=== PATIENT | female | born 1950 | race Caucasian/White ===

== ENCOUNTER 2019-03-23 13:26 | Inpatient (IN) ==
[2019-03-23] MEDS ORDERED: 0.9 % Sodium Chloride 500 ML IVC STA (13:43)
[2019-03-23] MEDS ORDERED: Naloxone 0.4 MG/ML INJ IVP STA (13:49)
[2019-03-23 15:05] LABS: Bilirubin,Urine Small (Negative); Blood,Urine Large (Negative); Clarity,Urine Turbid (Clear); Color,Urine Yellow (Yellow); Glucose,Urine (UA) Normal (Normal); Ketones,Urine Trace mg/dL (Negative); Leukocyte Esterase,Urine Moderate (Negative); Nitrite,Urine Negative (Negative); PH,Urine 5.5 pH Units (5.0-8.0); Protein,Urine 100 mg/dL (Neg-Trace); Urobilinogen,Urine Normal (Normal)
[2019-03-23 15:07] LABS: Bacteria,Urine Few per hpf (None-Few); Squamous Epithelial Cell,Urine Many per lpf (None-Few); WBC,Urine TNTC per hpf (0-3)
[2019-03-23 15:15] LABS: RBC,Urine Present per hpf (0-3)
[2019-03-23 15:16] LABS: Renal Epithelial Cells,Urine Present per hpf (None-Few); Transitional Epi Cells,Urine Present per hpf (None-Few)
[2019-03-23 15:22] LABS: Basophils % 0.3 %; Eosinophils # 0.1 K/mcL (0.0-0.6); Eosinophils % 0.8 %; Hematocrit 31.1 % (35.3-44.9); Hemoglobin 9.9 g/dL (11.5-15.4); Immature Granulocytes % 0.4 % (0-4); Lymphocytes # 0.8 K/mcL (0.6-4.6); Lymphocytes % 10.4 %; Mean Corpuscular HGB Conc 31.8 g/dL (31.6-35.5); Mean Corpuscular Hemoglobin 30.7 pg (28.0-33.3); Mean Corpuscular Volume 96.6 fL (83.0-100.0); Mean Platelet Volume 10.8 fL (9.4-12.4); Monocytes # 0.7 K/mcL (0.0-1.3); Monocytes % 8.4 %; Neutrophils # 6.3 K/mcL (1.6-8.9); Platelet Count 245 K/mcL (140-400); Red Blood Count 3.22 M/mcL (3.82-4.97); Red Cell Distribution Width 16.8 % (11.5-14.5); Segmented Neutrophils % 79.7 %; White Blood Count 7.9 K/mcL (4.3-11.1)
[2019-03-23] MEDS ORDERED: 0.9 % Sodium Chloride 1,000 ML IVC ONE (15:50)
[2019-03-23 16:28] LABS: Thyroid Stimulating Hormone 6.907 mcIU/mL (0.340-5.600); Troponin I < 0.03 ng/mL (< 0.04)
[2019-03-23] MEDS ORDERED: Piperacillin/Tazobactam 3.375 GM in Water for inj. (sterile) 20 ML IVP ONE (16:30)
[2019-03-23] MEDS ORDERED: Azithromycin 500 MG in 0.9 % Sodium Chloride 250 ML IVPB ONE (16:31)
[2019-03-23 16:47] LABS: Alanine Aminotransferase 4 Units/L (7-52); Albumin 2.7 g/dL (3.5-5.7); Albumin/Globulin Ratio 0.9 (1.1-2.2); Alkaline Phosphatase 67 Units/L (34-104); Aspartate Amino Transferase 14 Units/L (13-39); BUN/Creatinine Ratio 21 (6-26); Bilirubin,Indirect 0.3 mg/dL (0.0-1.0); Bilirubin,Total 0.3 mg/dL (0.3-1.0); Blood Urea Nitrogen 18 mg/dL (8-23); Calcium 9.2 mg/dL (8.6-10.3); Carbon Dioxide 23 mEq/L (23-29); Chloride 112 mEq/L (98-107); Globulin 2.9 g/dL (2.4-3.5); Glucose 90 mg/dL (70-105); Osmolality,Calculated 293 (280-300); Potassium 3.8 mEq/L (3.5-5.1); Sodium 141 mEq/L (136-145); Total Protein 5.6 g/dL (6.4-8.9); eGFR For African Americans > 60 (> 60); eGFR For Non-African Americans > 60 (> 60)
[2019-03-23] MEDS ORDERED: Naloxone 0.4 MG/ML INJ IVP PRN (18:18)
[2019-03-23] MEDS ORDERED: Dextrose Gel 15 GM/37.5 ML TUBE PO PRN ×2 (18:25)
[2019-03-23] MEDS ORDERED: D5% in Water 1,000 ML IVC PRN (18:25)
[2019-03-23 19:34] LABS: Estimated Average Glucose 134 mg/dl
[2019-03-23] MEDS: 0.9 % Sodium Chloride 1,000 ML IVC SCH (19:44)
[2019-03-23 20:51] LABS: Adenovirus Not Detected (Not Detect); Bordetella Pertussis Not Detected (Not Detect); Chlamydophila pneumoniae Not Detected (Not Detect); Coronavirus 229E Not Detected (Not Detect); Coronavirus HKU1 Not Detected (Not Detect); Coronavirus NL63 Not Detected (Not Detect); Coronavirus OC43 Not Detected (Not Detect); Human Metapneumovirus Not Detected (Not Detect); Human Rhinovirus/Enterovirus Not Detected (Not Detect); Influenza A Subtype 2009 H1 Not Detected (Not Detect); Influenza A Untypeable Not Detected (Not Detect); Influenza B Not Detected (Not Detect); Mycoplasma pneumoniae Not Detected (Not Detect); Parainfluenza Virus 1 Not Detected (Not Detect); Parainfluenza Virus 2 Not Detected (Not Detect); Parainfluenza Virus 3 Not Detected (Not Detect); Parainfluenza Virus 4 Not Detected (Not Detect); Respiratory Syncytial Virus Not Detected (Not Detect)
[2019-03-23 22:04] LABS: Triiodothyronine (T3) Free 2.5 pg/mL (2.50-3.90)
[2019-03-23] MEDS: Topiramate 25 MG TABLET PO SCH (22:56)
[2019-03-23] MEDS: Divalproex (12 HR) 500 MG TABLET PO SCH (22:56)
[2019-03-23] MEDS: Insulin LISPRO 300 UNITS/3 ML VIAL SQ SCH (22:57)
[2019-03-23] MEDS: levETIRAcetam 250 MG TABLET PO SCH (22:57)
[2019-03-24 06:02] LABS: Basophils % 0.3 %; Eosinophils # 0.1 K/mcL (0.0-0.6); Eosinophils % 1.4 %; Hematocrit 26.7 % (35.3-44.9); Immature Granulocytes % 0.5 % (0-4); Lymphocytes # 1.2 K/mcL (0.6-4.6); Lymphocytes % 18.8 %; Mean Corpuscular HGB Conc 30.7 g/dL (31.6-35.5); Mean Corpuscular Hemoglobin 30.8 pg (28.0-33.3); Mean Corpuscular Volume 100.4 fL (83.0-100.0); Mean Platelet Volume 10.9 fL (9.4-12.4); Monocytes # 0.4 K/mcL (0.0-1.3); Monocytes % 6.5 %; Neutrophils # 4.7 K/mcL (1.6-8.9); Platelet Count 202 K/mcL (140-400); Red Blood Count 2.66 M/mcL (3.82-4.97); Red Cell Distribution Width 16.7 % (11.5-14.5); Segmented Neutrophils % 72.5 %; White Blood Count 6.5 K/mcL (4.3-11.1)
[2019-03-24 06:04] LABS: Hemoglobin 8.2 g/dL (11.5-15.4)
[2019-03-24] MEDS: Divalproex (12 HR) 500 MG TABLET PO SCH (06:20)
[2019-03-24 06:38] LABS: BUN/Creatinine Ratio 22 (6-26); Blood Urea Nitrogen 13 mg/dL (8-23); Calcium 8.3 mg/dL (8.6-10.3); Carbon Dioxide 18 mEq/L (23-29); Chloride 114 mEq/L (98-107); Glucose 68 mg/dL (70-105); Magnesium 1.9 mg/dL (1.6-2.6); Osmolality,Calculated 296 (280-300); Phosphorous 2.7 mg/dL (2.7-4.5); Potassium 3.2 mEq/L (3.5-5.1); Sodium 144 mEq/L (136-145); Triiodothyronine (T3) Total 0.56 ng/mL (0.87-1.78); eGFR For African Americans > 60 (> 60); eGFR For Non-African Americans > 60 (> 60)
[2019-03-24] MEDS: Insulin LISPRO 300 UNITS/3 ML VIAL SQ SCH ×4 (09:03→21:24)
[2019-03-24] MEDS: levETIRAcetam 250 MG TABLET PO SCH (09:04)
[2019-03-24] MEDS: Aspirin Enteric Coated 325 MG Tablet PO SCH (09:04)
[2019-03-24] MEDS: Topiramate 25 MG TABLET PO SCH ×2 (09:04→20:41)
[2019-03-24] MEDS: Piperacillin/Tazobactam 3.375 GM in 0.9 % Sodium Chloride Mini Bag 100 ML IVPB SCH ×2 (09:05→20:41)
[2019-03-24] MEDS: *HR* Dextrose 50 % in Water (Syg) 50 ML SYRINGE IVP PRN ×2 (11:36→11:38)
[2019-03-24] MEDS: D5% in 0.45% NACL 1,000 ML IVC SCH (12:07)
[2019-03-24] MEDS ORDERED: Piperacillin/Tazobactam 3.375 GM in 0.9 % Sodium Chloride Mini Bag 100 ML IVPB SCH (18:00)
[2019-03-24] MEDS: Valproic Acid INJ 500 MG in 0.9 % Sodium Chloride 100 ML IVPB SCH (18:03)
[2019-03-24] MEDS ORDERED: *HR* Dextrose 50 % in Water (Vial) 50 ML VIAL IVC ONE (19:56)
[2019-03-24] MEDS ORDERED: Aminoglycoside Consult 1 EACH MC ONE (19:56)
[2019-03-25] MEDS: 0.9 % Sodium Chloride 1,000 ML IVC SCH (00:18)
[2019-03-25] MEDS: Valproic Acid INJ 500 MG in 0.9 % Sodium Chloride 100 ML IVPB SCH ×4 (00:30→23:03)
[2019-03-25] MEDS: D5% in 0.45% NACL 1,000 ML IVC SCH ×2 (02:46→12:58)
[2019-03-25] MEDS ORDERED: Piperacillin/Tazobactam 3.375 GM in 0.9 % Sodium Chloride Mini Bag 100 ML IVPB SCH (05:00)
[2019-03-25] MEDS: Insulin LISPRO 300 UNITS/3 ML VIAL SQ SCH ×2 (09:21→12:56)
[2019-03-25] MEDS: Topiramate 25 MG TABLET PO SCH ×2 (09:40→21:27)
[2019-03-25] MEDS: Aspirin Enteric Coated 325 MG Tablet PO SCH (09:43)
[2019-03-25] MEDS: cefTRIAXone 1,000 MG in 0.9 % Sodium Chloride Mini Bag 100 ML IVPB SCH (12:56)
[2019-03-25 13:41] LABS: Basophils % 0.3 %; Eosinophils # 0.1 K/mcL (0.0-0.6); Eosinophils % 1.4 %; Immature Granulocytes % 1.2 % (0-4); Lymphocytes # 1.2 K/mcL (0.6-4.6); Mean Corpuscular HGB Conc 30.9 g/dL (31.6-35.5); Mean Corpuscular Volume 100.3 fL (83.0-100.0); Mean Platelet Volume 10.8 fL (9.4-12.4); Monocytes # 0.3 K/mcL (0.0-1.3); Monocytes % 5.7 %; Neutrophils # 4.1 K/mcL (1.6-8.9); Platelet Count 215 K/mcL (140-400); Red Blood Count 3.19 M/mcL (3.82-4.97); Red Cell Distribution Width 16.8 % (11.5-14.5); Segmented Neutrophils % 71.4 %; White Blood Count 5.7 K/mcL (4.3-11.1)
[2019-03-25 13:56] LABS: BUN/Creatinine Ratio 13 (6-26); Blood Urea Nitrogen 7 mg/dL (8-23); Calcium 8.6 mg/dL (8.6-10.3); Carbon Dioxide 20 mEq/L (23-29); Chloride 113 mEq/L (98-107); Glucose 126 mg/dL (70-105); Hemoglobin 9.9 g/dL (11.5-15.4); Osmolality,Calculated 292 (280-300); Potassium 3.2 mEq/L (3.5-5.1); Sodium 141 mEq/L (136-145); Vancomycin,Trough 16 mcg/mL (5-10); eGFR For African Americans > 60 (> 60); eGFR For Non-African Americans > 60 (> 60)
[2019-03-25] MEDS ORDERED: Potassium Chloride Elixir 20 MEQ/15 ML UDC PO ONE (15:07)
[2019-03-25] MEDS: Acetaminophen 325 MG TABLET PO PRN (17:32)
[2019-03-25 18:56] LABS: Hematocrit 33.4 % (35.3-44.9); Hemoglobin 10.4 g/dL (11.5-15.4); Mean Corpuscular HGB Conc 31.1 g/dL (31.6-35.5); Mean Corpuscular Hemoglobin 30.2 pg (28.0-33.3); Mean Corpuscular Volume 97.1 fL (83.0-100.0); Mean Platelet Volume 11.5 fL (9.4-12.4); Platelet Count 213 K/mcL (140-400); Red Blood Count 3.44 M/mcL (3.82-4.97); Red Cell Distribution Width 16.9 % (11.5-14.5); White Blood Count 6.3 K/mcL (4.3-11.1)
[2019-03-26] MEDS: D5% in 0.45% NACL 1,000 ML IVC SCH (04:12)
[2019-03-26 05:32] LABS: Hematocrit 34.5 % (35.3-44.9); Hemoglobin 10.6 g/dL (11.5-15.4); Mean Corpuscular HGB Conc 30.7 g/dL (31.6-35.5); Mean Corpuscular Hemoglobin 29.9 pg (28.0-33.3); Mean Corpuscular Volume 97.5 fL (83.0-100.0); Mean Platelet Volume 10.6 fL (9.4-12.4); Platelet Count 240 K/mcL (140-400); Red Blood Count 3.54 M/mcL (3.82-4.97); Red Cell Distribution Width 16.7 % (11.5-14.5); White Blood Count 5.8 K/mcL (4.3-11.1)
[2019-03-26 06:46] LABS: BUN/Creatinine Ratio 9 (6-26); Blood Urea Nitrogen 5 mg/dL (8-23); Calcium 9.2 mg/dL (8.6-10.3); Carbon Dioxide 14 mEq/L (23-29); Chloride 116 mEq/L (98-107); Glucose 83 mg/dL (70-105); Osmolality,Calculated 288 (280-300); Potassium 3.5 mEq/L (3.5-5.1); Sodium 141 mEq/L (136-145); eGFR For African Americans > 60 (> 60); eGFR For Non-African Americans > 60 (> 60)
[2019-03-26] MEDS: cefTRIAXone 1,000 MG in 0.9 % Sodium Chloride Mini Bag 100 ML IVPB SCH (08:37)
[2019-03-26] MEDS: Topiramate 25 MG TABLET PO SCH ×2 (08:38→20:26)
[2019-03-26] MEDS: Aspirin Enteric Coated 325 MG Tablet PO SCH (08:38)
[2019-03-26] MEDS: Valproic Acid INJ 500 MG in 0.9 % Sodium Chloride 100 ML IVPB SCH (10:40)
[2019-03-26 10:49] LABS: VBG HCO3 18 mEq/L (21-27); VBG PCO2 29 mmHg (41-51); VBG PH 7.39 pH Units (7.32-7.42); VBG PO2 212 mmHg (25-50)
[2019-03-26] MEDS ORDERED: Ondansetron 4 MG/2 ML VIAL IVP ONE (15:29)
[2019-03-26] MEDS: Divalproex (12 HR) 500 MG TABLET PO SCH ×2 (17:43→23:22)
[2019-03-26] MEDS: levETIRAcetam 250 MG TABLET PO SCH (20:27)
[2019-03-27 04:40] LABS: Hematocrit 32.5 % (35.3-44.9); Hemoglobin 10.4 g/dL (11.5-15.4); Mean Corpuscular Hemoglobin 30.5 pg (28.0-33.3); Mean Corpuscular Volume 95.3 fL (83.0-100.0); Mean Platelet Volume 10.5 fL (9.4-12.4); Platelet Count 232 K/mcL (140-400); Red Blood Count 3.41 M/mcL (3.82-4.97)
[2019-03-27 05:12] LABS: BUN/Creatinine Ratio 7 (6-26); Blood Urea Nitrogen 4 mg/dL (8-23); Calcium 9.5 mg/dL (8.6-10.3); Carbon Dioxide 21 mEq/L (23-29); Chloride 115 mEq/L (98-107); Glucose 82 mg/dL (70-105); Osmolality,Calculated 288 (280-300); Potassium 3.6 mEq/L (3.5-5.1); Sodium 141 mEq/L (136-145); eGFR For African Americans > 60 (> 60); eGFR For Non-African Americans > 60 (> 60)
[2019-03-27] MEDS: cefTRIAXone 1,000 MG in 0.9 % Sodium Chloride Mini Bag 100 ML IVPB SCH (08:36)
[2019-03-27] MEDS: Topiramate 25 MG TABLET PO SCH ×2 (08:38→20:59)
[2019-03-27] MEDS: levETIRAcetam 250 MG TABLET PO SCH ×2 (08:38→20:59)
[2019-03-27] MEDS: Divalproex (12 HR) 500 MG TABLET PO SCH ×2 (08:38→17:54)
[2019-03-27] MEDS: Aspirin Enteric Coated 325 MG Tablet PO SCH (08:38)
[2019-03-27] MEDS: Leptospermum Honey Gel 44 ML TUBE TP SCH (17:16)
[2019-03-27] MEDS: Cefdinir 300 MG CAPSULE PO SCH (20:59)
[2019-03-28] MEDS: Divalproex (12 HR) 500 MG TABLET PO SCH ×4 (00:09→23:30)
[2019-03-28] MEDS: Cefdinir 300 MG CAPSULE PO SCH ×2 (09:43→22:32)
[2019-03-28] MEDS: Aspirin Enteric Coated 325 MG Tablet PO SCH (09:44)
[2019-03-28] MEDS: levETIRAcetam 250 MG TABLET PO SCH ×2 (09:44→22:32)
[2019-03-28] MEDS: Topiramate 25 MG TABLET PO SCH ×2 (09:44→22:32)
[2019-03-28] MEDS: Leptospermum Honey Gel 44 ML TUBE TP SCH (09:45)
[2019-03-28] MEDS: Acetaminophen 325 MG TABLET PO PRN (09:56)
[2019-03-29 03:20] LABS: BUN/Creatinine Ratio 10 (6-26); Blood Urea Nitrogen 7 mg/dL (8-23); Calcium 8.7 mg/dL (8.6-10.3); Carbon Dioxide 21 mEq/L (23-29); Chloride 114 mEq/L (98-107); Glucose 67 mg/dL (70-105); Osmolality,Calculated 286 (280-300); Potassium 3.3 mEq/L (3.5-5.1); Sodium 140 mEq/L (136-145); eGFR For African Americans > 60 (> 60); eGFR For Non-African Americans > 60 (> 60)
[2019-03-29] MEDS: Divalproex (12 HR) 500 MG TABLET PO SCH ×2 (08:24→16:55)
[2019-03-29] MEDS: Cefdinir 300 MG CAPSULE PO SCH ×2 (11:06→20:47)
[2019-03-29] MEDS: levETIRAcetam 250 MG TABLET PO SCH ×2 (11:06→20:47)
[2019-03-29] MEDS: Topiramate 25 MG TABLET PO SCH ×2 (11:06→20:47)
[2019-03-29] MEDS: Aspirin Enteric Coated 325 MG Tablet PO SCH (11:11)
[2019-03-29] MEDS: Leptospermum Honey Gel 44 ML TUBE TP SCH (11:11)
[2019-03-29] MEDS: Acetaminophen 325 MG TABLET PO PRN (13:58)
[2019-03-30] MEDS: Divalproex (12 HR) 500 MG TABLET PO SCH ×2 (00:14→09:48)
[2019-03-30] MEDS: Aspirin Enteric Coated 325 MG Tablet PO SCH (09:48)
[2019-03-30] MEDS: levETIRAcetam 250 MG TABLET PO SCH (09:48)
[2019-03-30] MEDS: Cefdinir 300 MG CAPSULE PO SCH (09:48)
[2019-03-30] MEDS: Topiramate 25 MG TABLET PO SCH (09:48)
[2019-03-30] MEDS: Leptospermum Honey Gel 44 ML TUBE TP SCH (09:49)
[2019-03-30 15:55] VITALS: BP 114/75
== END 2019-03-30 17:00 | DRG 698 ==
LOC: 3ANU 13:26 → EMEROOARM 13:26 → SUATTDRO 19:55 → 3ANU 20:19
PROVIDERS: ADMIT Internal Medicine; ATTEND Internal Medicine

== ENCOUNTER 2019-04-07 08:53 | Inpatient (IN) ==
[2019-04-07] MEDS ORDERED: 0.9 % Sodium Chloride 500 ML IVC ONE (09:03)
[2019-04-07 09:42] LABS: Basophils % 0.1 %; Eosinophils # 0.1 K/mcL (0.0-0.6); Eosinophils % 1.8 %; Hematocrit 37.2 % (35.3-44.9); Hemoglobin 11.7 g/dL (11.5-15.4); Immature Granulocytes % 0.7 % (0-4); Lymphocytes % 13.2 %; Mean Corpuscular HGB Conc 31.5 g/dL (31.6-35.5); Mean Corpuscular Volume 98.7 fL (83.0-100.0); Mean Platelet Volume 11.4 fL (9.4-12.4); Monocytes # 0.5 K/mcL (0.0-1.3); Monocytes % 7.4 %; Neutrophils # 5.6 K/mcL (1.6-8.9); Platelet Count 201 K/mcL (140-400); Red Blood Count 3.77 M/mcL (3.82-4.97); Red Cell Distribution Width 18.9 % (11.5-14.5); Segmented Neutrophils % 76.8 %; White Blood Count 7.3 K/mcL (4.3-11.1)
[2019-04-07 10:20] LABS: Alanine Aminotransferase < 3 Units/L (7-52); Albumin 3.1 g/dL (3.5-5.7); Albumin/Globulin Ratio 1.1 (1.1-2.2); Alkaline Phosphatase 71 Units/L (34-104); Aspartate Amino Transferase 8 Units/L (13-39); BUN/Creatinine Ratio 16 (6-26); Bilirubin,Indirect 0.3 mg/dL (0.0-1.0); Bilirubin,Total 0.3 mg/dL (0.3-1.0); Blood Urea Nitrogen 16 mg/dL (8-23); Calcium 9.7 mg/dL (8.6-10.3); Carbon Dioxide 24 mEq/L (23-29); Chloride 107 mEq/L (98-107); Globulin 2.7 g/dL (2.4-3.5); Glucose 72 mg/dL (70-105); Osmolality,Calculated 290 (280-300); Potassium 3.8 mEq/L (3.5-5.1); Sodium 140 mEq/L (136-145); Total Protein 5.8 g/dL (6.4-8.9); Troponin I < 0.03 ng/mL (< 0.04); eGFR For African Americans > 60 (> 60); eGFR For Non-African Americans 56 (> 60)
[2019-04-07 10:24] LABS: INR 1.2; Prothrombin Time 13.9 Seconds (9.4-12.1)
[2019-04-07] MEDS ORDERED: Aspirin 81 MG TAB.CHEW PO STA ×2 (10:42→15:50)
[2019-04-07 11:54] LABS: Bilirubin,Urine Small (Negative); Blood,Urine Large (Negative); Clarity,Urine Turbid (Clear); Color,Urine Yellow (Yellow); Glucose,Urine (UA) Normal (Normal); Ketones,Urine Trace mg/dL (Negative); Leukocyte Esterase,Urine Moderate (Negative); Nitrite,Urine Negative (Negative); Protein,Urine 100 mg/dL (Neg-Trace); Specific Gravity,Urine 1.023 (1.010-1.025); Urobilinogen,Urine Normal (Normal)
[2019-04-07 11:55] LABS: Bacteria,Urine None Seen per hpf (None-Few); Squamous Epithelial Cell,Urine Many per lpf (None-Few); WBC,Urine TNTC per hpf (0-3)
[2019-04-07 12:02] LABS: RBC,Urine 15-30 per hpf (0-3); Yeast,Urine Moderate per hpf (None Seen)
[2019-04-07] MEDS ORDERED: cefTRIAXone 1,000 MG in Water for inj. (sterile) 10 ML IVP ONE (12:11)
[2019-04-07] MEDS ORDERED: Naloxone 0.4 MG/ML INJ IVP PRN (14:34)
[2019-04-07] MEDS ORDERED: Acetaminophen 325 MG TABLET PO PRN (15:50)
[2019-04-07] MEDS ORDERED: 0.9 % Sodium Chloride 1,000 ML IVC SCH (16:00)
[2019-04-07] MEDS ORDERED: D5% in Lactated Ringers 1,000 ML IVC SCH (17:30)
[2019-04-07] MEDS: Topiramate 25 MG CAP.SPRINK PO SCH (18:27)
[2019-04-08] MEDS: Ferrous Sulfate Oral Soln 300 MG/5 ML UDC PO SCH ×4 (00:17→17:51)
[2019-04-08] MEDS: Divalproex Sodium 125 MG CAPSULE PO SCH ×3 (00:18→14:37)
[2019-04-08] MEDS: Nystatin POWDER 30 GM BOTTLE TP SCH ×3 (00:23→20:22)
[2019-04-08] MEDS: Topiramate 25 MG CAP.SPRINK PO SCH ×2 (06:47→17:51)
[2019-04-08] MEDS ORDERED: Acetaminophen IV 500 MG/50 ML INFUS..BTL IVPB ONE (06:55)
[2019-04-08] MEDS ORDERED: levETIRAcetam 250 MG TABLET PO SCH (08:00)
[2019-04-08] MEDS: cefTRIAXone 2,000 MG in 0.9 % Sodium Chloride Mini Bag 100 ML IVPB SCH (08:16)
[2019-04-08] MEDS: Aspirin Enteric Coated 325 MG Tablet PO SCH (08:17)
[2019-04-08 12:19] LABS: Vitamin B12 796 pg/mL (250-1100)
[2019-04-08 15:18] LABS: VBG HCO3 23 mEq/L (21-27); VBG PCO2 39 mmHg (41-51); VBG PH 7.38 pH Units (7.32-7.42); VBG PO2 144 mmHg (25-50)
[2019-04-08 15:22] LABS: INR 1.3
[2019-04-08 15:42] LABS: Alanine Aminotransferase < 3 Units/L (7-52); Albumin 2.5 g/dL (3.5-5.7); Alkaline Phosphatase 59 Units/L (34-104); Aspartate Amino Transferase 6 Units/L (13-39); BUN/Creatinine Ratio 19 (6-26); Bilirubin,Total 0.2 mg/dL (0.3-1.0); Blood Urea Nitrogen 12 mg/dL (8-23); Carbon Dioxide 23 mEq/L (23-29); Chloride 112 mEq/L (98-107); Cholesterol 129 mg/dL (< 200); Globulin 2.5 g/dL (2.4-3.5); Glucose 69 mg/dL (70-105); HDL Cholesterol 26 mg/dL (40-59); LDL Cholesterol,Calculated 74 mg/dL (0-99); Magnesium 1.8 mg/dL (1.6-2.6); Osmolality,Calculated 294 (280-300); Potassium 3.8 mEq/L (3.5-5.1); Sodium 143 mEq/L (136-145); Triglycerides 147 mg/dL (< 150); eGFR For African Americans > 60 (> 60); eGFR For Non-African Americans > 60 (> 60)
[2019-04-08 15:52] LABS: Thyroid Stimulating Hormone 6.069 mcIU/mL (0.340-5.600)
[2019-04-08] MEDS: *HR* Heparin 5,000 UNIT/ML VIAL SQ SCH (17:12)
[2019-04-08] MEDS ORDERED: Dextrose Gel 15 GM/37.5 ML TUBE PO PRN ×2 (21:43)
[2019-04-08] MEDS ORDERED: D5% in Water 1,000 ML IVC PRN (21:43)
[2019-04-08] MEDS ORDERED: *HR* Dextrose 50 % in Water (Syg) 50 ML SYRINGE IVP PRN (21:43)
[2019-04-09] MEDS: Topiramate 25 MG CAP.SPRINK PO SCH ×2 (05:08→17:56)
[2019-04-09] MEDS: *HR* Heparin 5,000 UNIT/ML VIAL SQ SCH ×2 (05:08→17:56)
[2019-04-09 05:40] LABS: Hematocrit 29.2 % (35.3-44.9); Mean Corpuscular HGB Conc 31.8 g/dL (31.6-35.5); Mean Corpuscular Hemoglobin 30.9 pg (28.0-33.3); Platelet Count 165 K/mcL (140-400); Red Blood Count 3.01 M/mcL (3.82-4.97); Red Cell Distribution Width 18.3 % (11.5-14.5); White Blood Count 5.2 K/mcL (4.3-11.1)
[2019-04-09 05:51] LABS: Hemoglobin 9.3 g/dL (11.5-15.4)
[2019-04-09 05:58] LABS: BUN/Creatinine Ratio 16 (6-26); Blood Urea Nitrogen 10 mg/dL (8-23); Calcium 8.5 mg/dL (8.6-10.3); Carbon Dioxide 23 mEq/L (23-29); Chloride 110 mEq/L (98-107); Glucose 114 mg/dL (70-105); Osmolality,Calculated 290 (280-300); Potassium 3.3 mEq/L (3.5-5.1); Sodium 140 mEq/L (136-145); eGFR For African Americans > 60 (> 60); eGFR For Non-African Americans > 60 (> 60)
[2019-04-09] MEDS: cefTRIAXone 2,000 MG in 0.9 % Sodium Chloride Mini Bag 100 ML IVPB SCH (08:11)
[2019-04-09] MEDS: Ferrous Sulfate Oral Soln 300 MG/5 ML UDC PO SCH ×5 (08:19→20:26)
[2019-04-09] MEDS: Aspirin Enteric Coated 325 MG Tablet PO SCH (08:20)
[2019-04-09] MEDS: Nystatin POWDER 30 GM BOTTLE TP SCH ×2 (08:21→20:27)
[2019-04-09 09:00] LABS: Estimated Average Glucose 111 mg/dl
[2019-04-09] MEDS: Potassium Chloride Elixir 20 MEQ/15 ML UDC PO SCH ×2 (12:02→20:27)
[2019-04-09] MEDS: Fluconazole 100 MG TABLET PO SCH (12:02)
[2019-04-09] MEDS: *HR* OxyCODONE Oral Soln 5 MG/5 ML UD.LIQ PO PRN ×2 (14:29→21:31)
[2019-04-09] MEDS: levETIRAcetam 250 MG TABLET PO SCH (17:57)
[2019-04-10 04:13] LABS: Hematocrit 29.7 % (35.3-44.9); Hemoglobin 9.6 g/dL (11.5-15.4); Mean Corpuscular HGB Conc 32.3 g/dL (31.6-35.5); Mean Corpuscular Hemoglobin 31.3 pg (28.0-33.3); Mean Corpuscular Volume 96.7 fL (83.0-100.0); Mean Platelet Volume 10.8 fL (9.4-12.4); Platelet Count 199 K/mcL (140-400); Red Blood Count 3.07 M/mcL (3.82-4.97); Red Cell Distribution Width 18.6 % (11.5-14.5); White Blood Count 5.8 K/mcL (4.3-11.1)
[2019-04-10 04:35] LABS: BUN/Creatinine Ratio 12 (6-26); Blood Urea Nitrogen 8 mg/dL (8-23); Calcium 8.9 mg/dL (8.6-10.3); Carbon Dioxide 23 mEq/L (23-29); Chloride 112 mEq/L (98-107); Glucose 75 mg/dL (70-105); Osmolality,Calculated 293 (280-300); Potassium 4.4 mEq/L (3.5-5.1); Sodium 143 mEq/L (136-145); eGFR For African Americans > 60 (> 60); eGFR For Non-African Americans > 60 (> 60)
[2019-04-10] MEDS: levETIRAcetam 250 MG TABLET PO SCH (05:27)
[2019-04-10] MEDS: Topiramate 25 MG CAP.SPRINK PO SCH (05:27)
[2019-04-10] MEDS: *HR* Heparin 5,000 UNIT/ML VIAL SQ SCH (05:27)
[2019-04-10] MEDS: Aspirin Enteric Coated 325 MG Tablet PO SCH (08:04)
[2019-04-10] MEDS: Potassium Chloride Elixir 20 MEQ/15 ML UDC PO SCH (08:04)
[2019-04-10] MEDS: Fluconazole 100 MG TABLET PO SCH (08:04)
[2019-04-10] MEDS: Ferrous Sulfate Oral Soln 300 MG/5 ML UDC PO SCH (08:04)
[2019-04-10] MEDS: Nystatin POWDER 30 GM BOTTLE TP SCH (08:05)
[2019-04-10 11:13] VITALS: BP 114/70
[2019-04-10] MEDS ORDERED: Linezolid 600 MG TABLET PO SCH (11:30)
[2019-04-10] MEDS: *HR* OxyCODONE Oral Soln 5 MG/5 ML UD.LIQ PO PRN (12:15)
== END 2019-04-10 15:12 | DRG 65 ==
LOC: 3BNU 08:53 → EMEROOARM 08:53 → 3BNU 14:58
PROVIDERS: ADMIT Internal Medicine; ATTEND Student in an Organized Health Care Education/Training Program

== ENCOUNTER 2019-04-18 09:18 | Observation (INO) ==
[2019-04-18] MEDS ORDERED: 0.9 % Sodium Chloride 1,000 ML IVC ONE (10:00)
[2019-04-18 10:32] LABS: Basophils % 0.3 %; Eosinophils # 0.1 K/mcL (0.0-0.6); Eosinophils % 2.1 %; Immature Granulocytes % 0.3 % (0-4); Lymphocytes # 1.1 K/mcL (0.6-4.6); Lymphocytes % 17.8 %; Mean Corpuscular HGB Conc 31.6 g/dL (31.6-35.5); Mean Corpuscular Hemoglobin 31.3 pg (28.0-33.3); Mean Corpuscular Volume 99.2 fL (83.0-100.0); Mean Platelet Volume 9.9 fL (9.4-12.4); Monocytes # 0.2 K/mcL (0.0-1.3); Monocytes % 3.9 %; Neutrophils # 4.7 K/mcL (1.6-8.9); Nucleated Red Blood Cells 0.3 /100 WBC (0); Platelet Count 163 K/mcL (140-400); Red Blood Count 3.83 M/mcL (3.82-4.97); Red Cell Distribution Width 19.8 % (11.5-14.5); Segmented Neutrophils % 75.6 %; White Blood Count 6.2 K/mcL (4.3-11.1)
[2019-04-18 10:56] LABS: Alanine Aminotransferase < 3 Units/L (7-52); Alkaline Phosphatase 68 Units/L (34-104); Aspartate Amino Transferase 6 Units/L (13-39); BUN/Creatinine Ratio 15 (6-26); Bilirubin,Indirect 0.2 mg/dL (0.0-1.0); Bilirubin,Total 0.2 mg/dL (0.3-1.0); Blood Urea Nitrogen 16 mg/dL (8-23); Calcium 9.9 mg/dL (8.6-10.3); Carbon Dioxide 25 mEq/L (23-29); Chloride 110 mEq/L (98-107); Globulin 3.1 g/dL (2.4-3.5); Glucose 83 mg/dL (70-105); Osmolality,Calculated 290 (280-300); Potassium 3.7 mEq/L (3.5-5.1); Sodium 140 mEq/L (136-145); Total Protein 6.1 g/dL (6.4-8.9); Troponin I < 0.03 ng/mL (< 0.04); eGFR For African Americans > 60 (> 60); eGFR For Non-African Americans 51 (> 60)
[2019-04-18] MEDS ORDERED: Cefepime HCl 1,000 MG in Water for inj. (sterile) 10 ML IVP ONE (11:07)
[2019-04-18] MEDS ORDERED: Azithromycin 500 MG in 0.9 % Sodium Chloride 250 ML IVPB ONE (11:07)
[2019-04-18 11:55] LABS: Amphetamine Screen,Urine Negative ng/mL (Cutoff=1000); Barbiturate Screen,Urine Negative ng/mL (Cutoff=200); Benzodiazepines Screen,Urine Negative ng/mL (Cutoff=200); Cannabinoid Screen,Urine Negative ng/mL (Cutoff = 50); Cocaine Screen,Urine Negative ng/mL (Cutoff= 300); Opiate Screen,Urine Negative ng/mL (Cutoff=300); Phencyclidine Screen,Urine Negative ng/mL (Cutoff=25)
[2019-04-18 12:26] LABS: Bilirubin,Urine Negative (Negative); Blood,Urine Trace (Negative); Color,Urine Yellow (Yellow); Glucose,Urine (UA) Normal (Normal); Ketones,Urine Trace mg/dL (Negative); Leukocyte Esterase,Urine Moderate (Negative); Nitrite,Urine Negative (Negative); Protein,Urine 30 mg/dL (Neg-Trace); Specific Gravity,Urine 1.023 (1.010-1.025); Urobilinogen,Urine Normal (Normal)
[2019-04-18] MEDS ORDERED: Ondansetron 4 MG/2 ML VIAL IVP PRN (12:27)
[2019-04-18] MEDS ORDERED: Naloxone 0.4 MG/ML INJ IVP PRN (12:27)
[2019-04-18 12:29] LABS: Bacteria,Urine None Seen per hpf (None-Few); Clarity,Urine Slightly Hazy (Clear); Hyaline Casts,Urine None Seen per lpf (None-Few); Squamous Epithelial Cell,Urine Many per lpf (None-Few); WBC,Urine TNTC per hpf (0-3)
[2019-04-18 12:43] LABS: Yeast,Urine Moderate per hpf (None Seen)
[2019-04-18 13:57] LABS: Valproate 42 mcg/mL (50-100)
[2019-04-18] MEDS: Ringers Solution, Lactated 1,000 ML IVC SCH (15:22)
[2019-04-18] MEDS: Divalproex (12 HR) 500 MG TABLET PO SCH ×2 (20:40→21:01)
[2019-04-18] MEDS: *HR* Heparin 5,000 UNIT/ML VIAL SQ SCH (20:40)
[2019-04-18] MEDS: Topiramate 25 MG TABLET PO SCH (20:40)
[2019-04-18] MEDS: levETIRAcetam 250 MG TABLET PO SCH (21:01)
[2019-04-19] MEDS: Topiramate 25 MG TABLET PO SCH ×2 (02:11→15:31)
[2019-04-19] MEDS: *HR* Heparin 5,000 UNIT/ML VIAL SQ SCH ×2 (06:24→18:07)
[2019-04-19] MEDS: Divalproex (12 HR) 500 MG TABLET PO SCH ×3 (06:24→21:28)
[2019-04-19] MEDS: Ringers Solution, Lactated 1,000 ML IVC SCH ×2 (06:47→21:35)
[2019-04-19] MEDS: levETIRAcetam 250 MG TABLET PO SCH ×2 (09:47→21:27)
[2019-04-19] MEDS: Linezolid 600 MG TABLET PO SCH ×2 (09:48→21:28)
[2019-04-19] MEDS: Aspirin Enteric Coated 325 MG Tablet PO SCH (09:48)
[2019-04-19 11:29] LABS: Basophils % 0.5 %; Eosinophils # 0.2 K/mcL (0.0-0.6); Eosinophils % 3.1 %; Hematocrit 36.8 % (35.3-44.9); Immature Granulocytes % 0.5 % (0-4); Lymphocytes # 1.7 K/mcL (0.6-4.6); Lymphocytes % 26.6 %; Mean Corpuscular HGB Conc 29.9 g/dL (31.6-35.5); Mean Corpuscular Hemoglobin 31.3 pg (28.0-33.3); Mean Corpuscular Volume 104.8 fL (83.0-100.0); Mean Platelet Volume 10.5 fL (9.4-12.4); Monocytes # 0.4 K/mcL (0.0-1.3); Monocytes % 6.6 %; Platelet Count 109 K/mcL (140-400); Red Blood Count 3.51 M/mcL (3.82-4.97); Red Cell Distribution Width 19.5 % (11.5-14.5); Segmented Neutrophils % 62.7 %; White Blood Count 6.4 K/mcL (4.3-11.1)
[2019-04-19 19:22] LABS: BUN/Creatinine Ratio 19 (6-26); Blood Urea Nitrogen 11 mg/dL (8-23); Calcium 9.2 mg/dL (8.6-10.3); Carbon Dioxide 25 mEq/L (23-29); Chloride 108 mEq/L (98-107); Glucose 72 mg/dL (70-105); Magnesium 1.7 mg/dL (1.6-2.6); Osmolality,Calculated 292 (280-300); Potassium 3.6 mEq/L (3.5-5.1); Sodium 142 mEq/L (136-145); eGFR For African Americans > 60 (> 60); eGFR For Non-African Americans > 60 (> 60)
[2019-04-20 02:27] LABS: Basophils % 0.2 %; Eosinophils # 0.1 K/mcL (0.0-0.6); Eosinophils % 2.8 %; Hematocrit 29.7 % (35.3-44.9); Hemoglobin 9.4 g/dL (11.5-15.4); Immature Granulocytes % 0.4 % (0-4); Lymphocytes # 1.4 K/mcL (0.6-4.6); Lymphocytes % 27.1 %; Mean Corpuscular HGB Conc 31.6 g/dL (31.6-35.5); Mean Corpuscular Hemoglobin 31.8 pg (28.0-33.3); Mean Corpuscular Volume 100.3 fL (83.0-100.0); Mean Platelet Volume 10.3 fL (9.4-12.4); Monocytes # 0.2 K/mcL (0.0-1.3); Neutrophils # 3.3 K/mcL (1.6-8.9); Red Blood Count 2.96 M/mcL (3.82-4.97); Red Cell Distribution Width 18.8 % (11.5-14.5); Segmented Neutrophils % 65.5 %
[2019-04-20] MEDS: Topiramate 25 MG TABLET PO SCH ×2 (02:35→13:40)
[2019-04-20 02:43] LABS: BUN/Creatinine Ratio 17 (6-26); Blood Urea Nitrogen 10 mg/dL (8-23); Carbon Dioxide 23 mEq/L (23-29); Chloride 110 mEq/L (98-107); Glucose 60 mg/dL (70-105); Osmolality,Calculated 289 (280-300); Potassium 3.5 mEq/L (3.5-5.1); Sodium 141 mEq/L (136-145); eGFR For African Americans > 60 (> 60); eGFR For Non-African Americans > 60 (> 60)
[2019-04-20 03:05] LABS: Platelet Count 97 K/mcL (140-400)
[2019-04-20] MEDS: *HR* Heparin 5,000 UNIT/ML VIAL SQ SCH ×2 (06:07→17:33)
[2019-04-20] MEDS: Divalproex (12 HR) 500 MG TABLET PO SCH ×3 (06:07→20:32)
[2019-04-20] MEDS: levETIRAcetam 250 MG TABLET PO SCH ×2 (08:28→20:32)
[2019-04-20] MEDS: Aspirin Enteric Coated 325 MG Tablet PO SCH (08:28)
[2019-04-20] MEDS: Linezolid 600 MG TABLET PO SCH (08:28)
[2019-04-20] MEDS: Ringers Solution, Lactated 1,000 ML IVC SCH (09:50)
[2019-04-21] MEDS: Topiramate 25 MG TABLET PO SCH ×2 (04:13→13:22)
[2019-04-21] MEDS: Divalproex (12 HR) 500 MG TABLET PO SCH ×2 (06:25→13:22)
[2019-04-21] MEDS: *HR* Heparin 5,000 UNIT/ML VIAL SQ SCH ×2 (06:25→17:23)
[2019-04-21] MEDS: Aspirin Enteric Coated 325 MG Tablet PO SCH (07:52)
[2019-04-21] MEDS: levETIRAcetam 250 MG TABLET PO SCH (07:53)
[2019-04-21] MEDS ORDERED: FLUoxetine HCl Oral Soln 20 MG/5 ML UDC PO SCH (09:00)
[2019-04-21 13:06] VITALS: BP 164/70
== END 2019-04-21 18:30 ==
LOC: 3ANU 09:18 → EMEROOARM 09:18 → SUATTDRO 13:20 → 3ANU 17:27
PROVIDERS: ADMIT Family Medicine; ATTEND Internal Medicine

== ENCOUNTER 2019-04-25 10:26 | Inpatient (IN) ==
[2019-04-25 12:22] LABS: Bilirubin,Urine Negative (Negative); Blood,Urine Large (Negative); Clarity,Urine Turbid (Clear); Color,Urine Yellow (Yellow); Glucose,Urine (UA) Normal (Normal); Ketones,Urine 15 mg/dL (Negative); Leukocyte Esterase,Urine Large (Negative); Nitrite,Urine Positive (Negative); Protein,Urine >=300 mg/dL (Neg-Trace); Specific Gravity,Urine 1.024 (1.010-1.025); Urobilinogen,Urine Normal (Normal)
[2019-04-25] MEDS ORDERED: cefTRIAXone 1,000 MG in Water for inj. (sterile) 10 ML IVP ONE (12:30)
[2019-04-25 12:38] LABS: Bacteria,Urine Many per hpf (None-Few); RBC,Urine 50-100 per hpf (0-3); Squamous Epithelial Cell,Urine Many per lpf (None-Few); WBC,Urine TNTC per hpf (0-3)
[2019-04-25 13:12] LABS: Hyaline Casts,Urine None Seen per lpf (None-Few)
[2019-04-25 14:12] LABS: Basophils % 0.3 %; Eosinophils # 0.1 K/mcL (0.0-0.6); Eosinophils % 1.1 %; Hematocrit 31.7 % (35.3-44.9); Hemoglobin 10.5 g/dL (11.5-15.4); Immature Granulocytes % 0.6 % (0-4); Lymphocytes # 0.8 K/mcL (0.6-4.6); Lymphocytes % 10.2 %; Mean Corpuscular HGB Conc 33.1 g/dL (31.6-35.5); Mean Corpuscular Hemoglobin 31.5 pg (28.0-33.3); Mean Corpuscular Volume 95.2 fL (83.0-100.0); Monocytes # 0.5 K/mcL (0.0-1.3); Monocytes % 6.1 %; Neutrophils # 6.4 K/mcL (1.6-8.9); Nucleated Red Blood Cells 0.4 /100 WBC (0); Platelet Count 156 K/mcL (140-400); Red Blood Count 3.33 M/mcL (3.82-4.97); Red Cell Distribution Width 19.9 % (11.5-14.5); Segmented Neutrophils % 81.7 %; White Blood Count 7.8 K/mcL (4.3-11.1)
[2019-04-25 14:19] LABS: INR 1.2; Prothrombin Time 13.3 Seconds (9.4-12.1)
[2019-04-25 14:22] LABS: Activated Partial Thrombo Time 31.5 Seconds (26.0-36.0)
[2019-04-25 14:36] LABS: Platelet Estimate Normal (Normal)
[2019-04-25 14:46] LABS: Alanine Aminotransferase 3 Units/L (7-52); Albumin 2.8 g/dL (3.5-5.7); Albumin/Globulin Ratio 1.1 (1.1-2.2); Alkaline Phosphatase 60 Units/L (34-104); Aspartate Amino Transferase 8 Units/L (13-39); BUN/Creatinine Ratio 16 (6-26); Bilirubin,Indirect 0.3 mg/dL (0.0-1.0); Bilirubin,Total 0.3 mg/dL (0.3-1.0); Blood Urea Nitrogen 12 mg/dL (8-23); Carbon Dioxide 21 mEq/L (23-29); Chloride 111 mEq/L (98-107); Globulin 2.6 g/dL (2.4-3.5); Glucose 70 mg/dL (70-105); Osmolality,Calculated 290 (280-300); Potassium 3.4 mEq/L (3.5-5.1); Sodium 141 mEq/L (136-145); Total Protein 5.4 g/dL (6.4-8.9); eGFR For African Americans > 60 (> 60); eGFR For Non-African Americans > 60 (> 60)
[2019-04-25] MEDS ORDERED: Naloxone 0.4 MG/ML INJ IVP PRN (16:14)
[2019-04-25] MEDS ORDERED: Chloraseptic Spray 177 ML BOTTLE MM PRN (17:11)
[2019-04-25] MEDS ORDERED: levETIRAcetam 250 MG TABLET PO SCH (17:15)
[2019-04-25] MEDS ORDERED: Topiramate 25 MG TABLET PO SCH (17:15)
[2019-04-25] MEDS: Topiramate 25 MG TABLET PO SCH (22:21)
[2019-04-25] MEDS: levETIRAcetam 250 MG TABLET PO SCH (22:22)
[2019-04-25] MEDS: Divalproex (12 HR) 500 MG TABLET PO SCH (22:23)
[2019-04-25] MEDS: Ringers Solution, Lactated 1,000 ML IVC SCH (22:23)
[2019-04-25] MEDS: Nystatin POWDER 30 GM BOTTLE TP SCH (22:53)
[2019-04-26 00:23] LABS: Adenovirus Not Detected (Not Detect); Bordetella Pertussis Not Detected (Not Detect); Chlamydophila pneumoniae Not Detected (Not Detect); Coronavirus 229E DETECTED (Not Detect); Coronavirus HKU1 Not Detected (Not Detect); Coronavirus NL63 Not Detected (Not Detect); Coronavirus OC43 Not Detected (Not Detect); Human Metapneumovirus Not Detected (Not Detect); Human Rhinovirus/Enterovirus Not Detected (Not Detect); Influenza A Subtype 2009 H1 Not Detected (Not Detect); Influenza B Not Detected (Not Detect); Mycoplasma pneumoniae Not Detected (Not Detect); Parainfluenza Virus 1 Not Detected (Not Detect); Parainfluenza Virus 2 Not Detected (Not Detect); Parainfluenza Virus 3 Not Detected (Not Detect); Parainfluenza Virus 4 Not Detected (Not Detect); Respiratory Syncytial Virus Not Detected (Not Detect)
[2019-04-26] MEDS: Divalproex (12 HR) 500 MG TABLET PO SCH ×3 (04:40→20:58)
[2019-04-26] MEDS ORDERED: Dextrose Gel 15 GM/37.5 ML TUBE PO PRN (08:05)
[2019-04-26] MEDS ORDERED: *HR* Dextrose 50 % in Water (Syg) 50 ML SYRINGE IVP STA (08:10)
[2019-04-26] MEDS: *HR* Dextrose 50 % in Water (Syg) 50 ML SYRINGE IVP PRN (08:19)
[2019-04-26] MEDS: cefTRIAXone 1,000 MG in Water for inj. (sterile) 10 ML IVP SCH (11:23)
[2019-04-26] MEDS: D5% in 0.45% NACL 1,000 ML IVC SCH (11:23)
[2019-04-26] MEDS: Aspirin Enteric Coated 325 MG Tablet PO SCH (11:28)
[2019-04-26] MEDS: FLUoxetine 20 MG CAPSULE PO SCH (11:29)
[2019-04-26] MEDS: Neosporin OINT 15 GM TUBE TP SCH (11:29)
[2019-04-26] MEDS: Nystatin POWDER 30 GM BOTTLE TP SCH ×2 (11:29→21:03)
[2019-04-26] MEDS: Topiramate 25 MG TABLET PO SCH ×2 (11:30→20:58)
[2019-04-26 11:52] LABS: Basophils % 0.2 %; Eosinophils % 0.6 %; Hematocrit 25.9 % (35.3-44.9); Immature Granulocytes % 0.6 % (0-4); Lymphocytes # 0.8 K/mcL (0.6-4.6); Lymphocytes % 15.8 %; Mean Corpuscular HGB Conc 32.8 g/dL (31.6-35.5); Mean Corpuscular Hemoglobin 31.5 pg (28.0-33.3); Mean Corpuscular Volume 95.9 fL (83.0-100.0); Mean Platelet Volume 10.2 fL (9.4-12.4); Monocytes # 0.7 K/mcL (0.0-1.3); Monocytes % 12.2 %; Neutrophils # 3.8 K/mcL (1.6-8.9); Nucleated Red Blood Cells 0.4 /100 WBC (0); Platelet Count 147 K/mcL (140-400); Red Cell Distribution Width 20.5 % (11.5-14.5); Segmented Neutrophils % 70.6 %; White Blood Count 5.3 K/mcL (4.3-11.1)
[2019-04-26 12:00] LABS: Hemoglobin 8.5 g/dL (11.5-15.4)
[2019-04-26 12:17] LABS: BUN/Creatinine Ratio 23 (6-26); Blood Urea Nitrogen 15 mg/dL (8-23); Calcium 8.3 mg/dL (8.6-10.3); Carbon Dioxide 23 mEq/L (23-29); Chloride 113 mEq/L (98-107); Glucose 94 mg/dL (70-105); Osmolality,Calculated 293 (280-300); Sodium 141 mEq/L (136-145); eGFR For African Americans > 60 (> 60); eGFR For Non-African Americans > 60 (> 60)
[2019-04-26] MEDS ORDERED: Potassium Chloride 40 MEQ, Lidocaine 1% 2 ML in 0.9 % Sodium Chloride 500 ML IVPB ONE (12:21)
[2019-04-26 13:36] LABS: Thyroid Stimulating Hormone 3.712 mcIU/mL (0.340-5.600)
[2019-04-26 13:37] LABS: Triiodothyronine (T3) Free 1.87 pg/mL (2.50-3.90)
[2019-04-26] MEDS: Nystatin SUSP 5 ML UD.LIQ BC SCH ×3 (14:27→21:02)
[2019-04-26] MEDS: *HR* Heparin 5,000 UNIT/ML VIAL SQ SCH (18:01)
[2019-04-27] MEDS: D5% in 0.45% NACL 1,000 ML IVC SCH ×2 (05:30→17:52)
[2019-04-27] MEDS: Levothyroxine 25 MCG TABLET PO SCH (05:31)
[2019-04-27] MEDS: Divalproex (12 HR) 500 MG TABLET PO SCH ×3 (05:31→21:22)
[2019-04-27] MEDS: *HR* Heparin 5,000 UNIT/ML VIAL SQ SCH ×2 (05:32→18:29)
[2019-04-27 07:20] LABS: Eosinophils # 0.1 K/mcL (0.0-0.6); Eosinophils % 2.3 %; Hematocrit 23.7 % (35.3-44.9); Hemoglobin 7.3 g/dL (11.5-15.4); Immature Granulocytes % 0.3 % (0-4); Lymphocytes # 1.2 K/mcL (0.6-4.6); Lymphocytes % 29.7 %; Mean Corpuscular HGB Conc 30.8 g/dL (31.6-35.5); Mean Corpuscular Hemoglobin 31.5 pg (28.0-33.3); Mean Platelet Volume 10.4 fL (9.4-12.4); Monocytes # 0.4 K/mcL (0.0-1.3); Monocytes % 10.4 %; Neutrophils # 2.3 K/mcL (1.6-8.9); Platelet Count 141 K/mcL (140-400); Red Blood Count 2.32 M/mcL (3.82-4.97); Red Cell Distribution Width 20.7 % (11.5-14.5); Segmented Neutrophils % 57.3 %; White Blood Count 3.9 K/mcL (4.3-11.1)
[2019-04-27] MEDS: Dextrose Gel 15 GM/37.5 ML TUBE PO PRN (07:42)
[2019-04-27] MEDS: cefTRIAXone 1,000 MG in Water for inj. (sterile) 10 ML IVP SCH (07:42)
[2019-04-27 07:44] LABS: % Iron Saturation 26 % (15-50); BUN/Creatinine Ratio 24 (6-26); Blood Urea Nitrogen 12 mg/dL (8-23); Calcium 8.3 mg/dL (8.6-10.3); Carbon Dioxide 24 mEq/L (23-29); Chloride 112 mEq/L (98-107); Glucose 99 mg/dL (70-105); Iron 35 mcg/dL (50-170); Osmolality,Calculated 294 (280-300); Potassium 3.4 mEq/L (3.5-5.1); Sodium 142 mEq/L (136-145); Transferrin 96 mg/dL (203-362); eGFR For African Americans > 60 (> 60); eGFR For Non-African Americans > 60 (> 60)
[2019-04-27] MEDS: Aspirin Enteric Coated 325 MG Tablet PO SCH (07:45)
[2019-04-27] MEDS: Nystatin SUSP 5 ML UD.LIQ BC SCH ×4 (07:45→21:21)
[2019-04-27] MEDS: FLUoxetine 20 MG CAPSULE PO SCH (07:45)
[2019-04-27] MEDS: Nystatin POWDER 30 GM BOTTLE TP SCH ×2 (07:47→21:48)
[2019-04-27 08:01] LABS: Ferritin 244 ng/mL (10-120); Mean Corpuscular Volume 102.2 fL (83.0-100.0)
[2019-04-27 08:04] LABS: Folate 6.8 ng/mL (3.0-16.0)
[2019-04-27] MEDS: Ringers Solution, Lactated 1,000 ML IVC SCH (08:44)
[2019-04-27] MEDS: Neosporin OINT 15 GM TUBE TP SCH (11:32)
[2019-04-27] MEDS: levETIRAcetam 250 MG TABLET PO SCH ×2 (11:32→21:23)
[2019-04-27] MEDS: Topiramate 25 MG TABLET PO SCH ×2 (11:32→21:23)
[2019-04-27] MEDS ORDERED: Acetaminophen 325 MG TABLET PO PRN (14:08)
[2019-04-27] MEDS: Leptospermum Honey Gel 44 ML TUBE TP SCH (17:49)
[2019-04-27] MEDS: D5% in Water 1,000 ML IVC PRN (19:01)
[2019-04-28] MEDS: Divalproex (12 HR) 500 MG TABLET PO SCH ×3 (05:38→21:58)
[2019-04-28] MEDS: *HR* Heparin 5,000 UNIT/ML VIAL SQ SCH ×2 (05:38→19:02)
[2019-04-28] MEDS: Levothyroxine 25 MCG TABLET PO SCH (05:38)
[2019-04-28] MEDS: Nystatin POWDER 30 GM BOTTLE TP SCH ×2 (09:00→22:10)
[2019-04-28] MEDS: cefTRIAXone 1,000 MG in Water for inj. (sterile) 10 ML IVP SCH (09:00)
[2019-04-28] MEDS: FLUoxetine 20 MG CAPSULE PO SCH (09:00)
[2019-04-28] MEDS: Aspirin Enteric Coated 325 MG Tablet PO SCH (09:00)
[2019-04-28] MEDS: Neosporin OINT 15 GM TUBE TP SCH (09:00)
[2019-04-28] MEDS: Leptospermum Honey Gel 44 ML TUBE TP SCH (09:00)
[2019-04-28] MEDS: Nystatin SUSP 5 ML UD.LIQ BC SCH ×4 (09:00→22:10)
[2019-04-28] MEDS: levETIRAcetam 250 MG TABLET PO SCH ×2 (10:00→21:59)
[2019-04-28] MEDS: Topiramate 25 MG TABLET PO SCH ×2 (10:45→22:00)
[2019-04-28] MEDS ORDERED: Saliva Stimulant 100ml BOTTLE PO PRN (11:22)
[2019-04-28 11:49] LABS: Basophils % 0.2 %; Eosinophils # 0.2 K/mcL (0.0-0.6); Eosinophils % 3.4 %; Hematocrit 31.2 % (35.3-44.9); Immature Granulocytes % 0.2 % (0-4); Lymphocytes # 1.1 K/mcL (0.6-4.6); Lymphocytes % 24.4 %; Mean Corpuscular HGB Conc 29.2 g/dL (31.6-35.5); Mean Corpuscular Hemoglobin 30.7 pg (28.0-33.3); Mean Corpuscular Volume 105.4 fL (83.0-100.0); Mean Platelet Volume 10.6 fL (9.4-12.4); Monocytes # 0.5 K/mcL (0.0-1.3); Monocytes % 11.2 %; Neutrophils # 2.7 K/mcL (1.6-8.9); Platelet Count 150 K/mcL (140-400); Red Blood Count 2.96 M/mcL (3.82-4.97); Red Cell Distribution Width 19.8 % (11.5-14.5); Segmented Neutrophils % 60.6 %; White Blood Count 4.5 K/mcL (4.3-11.1)
[2019-04-28 11:56] LABS: Hemoglobin 9.1 g/dL (11.5-15.4)
[2019-04-28 12:00] LABS: BUN/Creatinine Ratio 12 (6-26); Blood Urea Nitrogen 6 mg/dL (8-23); Calcium 8.7 mg/dL (8.6-10.3); Carbon Dioxide 22 mEq/L (23-29); Chloride 109 mEq/L (98-107); Glucose 60 mg/dL (70-105); Osmolality,Calculated 285 (280-300); Potassium 3.8 mEq/L (3.5-5.1); Sodium 140 mEq/L (136-145); eGFR For African Americans > 60 (> 60); eGFR For Non-African Americans > 60 (> 60)
[2019-04-28] MEDS: D5% in Water 1,000 ML IVC SCH (19:30)
[2019-04-29 03:02] LABS: Basophils % 0.3 %; Eosinophils # 0.2 K/mcL (0.0-0.6); Eosinophils % 4.6 %; Hematocrit 25.4 % (35.3-44.9); Immature Granulocytes % 0.3 % (0-4); Lymphocytes # 1.1 K/mcL (0.6-4.6); Lymphocytes % 29.3 %; Mean Corpuscular HGB Conc 31.5 g/dL (31.6-35.5); Mean Corpuscular Hemoglobin 31.4 pg (28.0-33.3); Mean Corpuscular Volume 99.6 fL (83.0-100.0); Mean Platelet Volume 10.3 fL (9.4-12.4); Monocytes # 0.4 K/mcL (0.0-1.3); Monocytes % 9.8 %; Neutrophils # 2.1 K/mcL (1.6-8.9); Platelet Count 162 K/mcL (140-400); Red Blood Count 2.55 M/mcL (3.82-4.97); Red Cell Distribution Width 19.4 % (11.5-14.5); Segmented Neutrophils % 55.7 %; White Blood Count 3.7 K/mcL (4.3-11.1)
[2019-04-29 03:19] LABS: BUN/Creatinine Ratio 9 (6-26); Blood Urea Nitrogen 4 mg/dL (8-23); Calcium 8.3 mg/dL (8.6-10.3); Carbon Dioxide 23 mEq/L (23-29); Chloride 109 mEq/L (98-107); Glucose 73 mg/dL (70-105); Osmolality,Calculated 279 (280-300); Potassium 3.5 mEq/L (3.5-5.1); Sodium 137 mEq/L (136-145); eGFR For African Americans > 60 (> 60); eGFR For Non-African Americans > 60 (> 60)
[2019-04-29] MEDS: Levothyroxine 25 MCG TABLET PO SCH (06:33)
[2019-04-29] MEDS: Divalproex (12 HR) 500 MG TABLET PO SCH ×3 (06:33→21:19)
[2019-04-29] MEDS: *HR* Heparin 5,000 UNIT/ML VIAL SQ SCH ×2 (08:09→17:30)
[2019-04-29] MEDS: levETIRAcetam 250 MG TABLET PO SCH ×2 (08:11→21:18)
[2019-04-29] MEDS: Topiramate 25 MG TABLET PO SCH ×2 (08:11→21:18)
[2019-04-29] MEDS: FLUoxetine 20 MG CAPSULE PO SCH (08:12)
[2019-04-29] MEDS: Leptospermum Honey Gel 44 ML TUBE TP SCH (08:12)
[2019-04-29] MEDS: Neosporin OINT 15 GM TUBE TP SCH (08:12)
[2019-04-29] MEDS: Aspirin Enteric Coated 325 MG Tablet PO SCH (08:12)
[2019-04-29] MEDS: cefTRIAXone 1,000 MG in Water for inj. (sterile) 10 ML IVP SCH (08:13)
[2019-04-29] MEDS: Nystatin SUSP 5 ML UD.LIQ BC SCH ×4 (08:14→21:20)
[2019-04-29] MEDS: Nystatin POWDER 30 GM BOTTLE TP SCH ×2 (08:14→21:31)
[2019-04-29] MEDS ORDERED: Megestrol Acetate 400 MG/10 ML UDC PO SCH (11:45)
[2019-04-29] MEDS: Megestrol Acetate 400 MG/10 ML UDC PO SCH (14:32)
[2019-04-29] MEDS: D5% in Water 1,000 ML IVC SCH ×3 (14:33→21:56)
[2019-04-30] MEDS: Levothyroxine 25 MCG TABLET PO SCH (05:49)
[2019-04-30] MEDS: Divalproex (12 HR) 500 MG TABLET PO SCH ×3 (05:49→21:04)
[2019-04-30] MEDS: *HR* Heparin 5,000 UNIT/ML VIAL SQ SCH ×2 (05:50→17:37)
[2019-04-30 08:04] LABS: BUN/Creatinine Ratio 7 (6-26); Blood Urea Nitrogen 4 mg/dL (8-23); Calcium 8.6 mg/dL (8.6-10.3); Carbon Dioxide 19 mEq/L (23-29); Chloride 109 mEq/L (98-107); Glucose 88 mg/dL (70-105); Osmolality,Calculated 284 (280-300); Sodium 139 mEq/L (136-145); eGFR For African Americans > 60 (> 60); eGFR For Non-African Americans > 60 (> 60)
[2019-04-30 09:13] LABS: Basophils % 0.4 %; Eosinophils # 0.3 K/mcL (0.0-0.6); Eosinophils % 5.1 %; Hematocrit 33.2 % (35.3-44.9); Hemoglobin 10.9 g/dL (11.5-15.4); Immature Granulocytes % 0.6 % (0-4); Lymphocytes # 1.4 K/mcL (0.6-4.6); Lymphocytes % 26.8 %; Mean Corpuscular HGB Conc 32.8 g/dL (31.6-35.5); Mean Corpuscular Hemoglobin 31.3 pg (28.0-33.3); Mean Corpuscular Volume 95.4 fL (83.0-100.0); Mean Platelet Volume 10.3 fL (9.4-12.4); Monocytes # 0.4 K/mcL (0.0-1.3); Monocytes % 7.9 %; Neutrophils # 3.1 K/mcL (1.6-8.9); Platelet Count 228 K/mcL (140-400); Red Blood Count 3.48 M/mcL (3.82-4.97); Red Cell Distribution Width 19.3 % (11.5-14.5); Segmented Neutrophils % 59.2 %; White Blood Count 5.3 K/mcL (4.3-11.1)
[2019-04-30] MEDS: cefTRIAXone 1,000 MG in Water for inj. (sterile) 10 ML IVP SCH (09:25)
[2019-04-30] MEDS: Megestrol Acetate 400 MG/10 ML UDC PO SCH (09:26)
[2019-04-30] MEDS: Nystatin SUSP 5 ML UD.LIQ BC SCH ×4 (09:26→21:04)
[2019-04-30] MEDS: Leptospermum Honey Gel 44 ML TUBE TP SCH (09:27)
[2019-04-30] MEDS: FLUoxetine 20 MG CAPSULE PO SCH (09:27)
[2019-04-30] MEDS: Topiramate 25 MG TABLET PO SCH ×2 (09:27→21:04)
[2019-04-30] MEDS: levETIRAcetam 250 MG TABLET PO SCH ×2 (09:27→21:03)
[2019-04-30] MEDS: Aspirin Enteric Coated 325 MG Tablet PO SCH (09:27)
[2019-04-30] MEDS: Neosporin OINT 15 GM TUBE TP SCH (09:28)
[2019-04-30] MEDS: Nystatin POWDER 30 GM BOTTLE TP SCH ×2 (09:29→21:12)
[2019-05-01] MEDS: *HR* Heparin 5,000 UNIT/ML VIAL SQ SCH ×2 (05:33→17:59)
[2019-05-01] MEDS: Divalproex (12 HR) 500 MG TABLET PO SCH ×3 (05:39→21:25)
[2019-05-01] MEDS: D5% in Water 1,000 ML IVC SCH ×4 (05:39→17:59)
[2019-05-01] MEDS: Levothyroxine 25 MCG TABLET PO SCH (05:39)
[2019-05-01 06:37] LABS: Basophils % 0.2 %; Eosinophils # 0.3 K/mcL (0.0-0.6); Eosinophils % 5.4 %; Hematocrit 28.3 % (35.3-44.9); Immature Granulocytes % 0.6 % (0-4); Lymphocytes # 1.9 K/mcL (0.6-4.6); Lymphocytes % 37.5 %; Mean Corpuscular HGB Conc 31.8 g/dL (31.6-35.5); Mean Corpuscular Hemoglobin 31.5 pg (28.0-33.3); Mean Platelet Volume 10.9 fL (9.4-12.4); Monocytes # 0.4 K/mcL (0.0-1.3); Neutrophils # 2.5 K/mcL (1.6-8.9); Platelet Count 193 K/mcL (140-400); Red Blood Count 2.86 M/mcL (3.82-4.97); Red Cell Distribution Width 19.5 % (11.5-14.5); Segmented Neutrophils % 49.3 %
[2019-05-01 06:58] LABS: BUN/Creatinine Ratio 11 (6-26); Blood Urea Nitrogen 7 mg/dL (8-23); Calcium 8.5 mg/dL (8.6-10.3); Carbon Dioxide 23 mEq/L (23-29); Chloride 108 mEq/L (98-107); Glucose 69 mg/dL (70-105); Osmolality,Calculated 284 (280-300); Potassium 3.9 mEq/L (3.5-5.1); Sodium 139 mEq/L (136-145); eGFR For African Americans > 60 (> 60); eGFR For Non-African Americans > 60 (> 60)
[2019-05-01] MEDS: Topiramate 25 MG TABLET PO SCH ×2 (08:25→21:26)
[2019-05-01] MEDS: levETIRAcetam 250 MG TABLET PO SCH ×2 (08:25→21:25)
[2019-05-01] MEDS: Megestrol Acetate 400 MG/10 ML UDC PO SCH (08:26)
[2019-05-01] MEDS: Aspirin Enteric Coated 325 MG Tablet PO SCH (08:26)
[2019-05-01] MEDS: FLUoxetine 20 MG CAPSULE PO SCH (08:26)
[2019-05-01] MEDS: cefTRIAXone 1,000 MG in Water for inj. (sterile) 10 ML IVP SCH (08:27)
[2019-05-01] MEDS: Leptospermum Honey Gel 44 ML TUBE TP SCH (08:28)
[2019-05-01] MEDS: Neosporin OINT 15 GM TUBE TP SCH (08:29)
[2019-05-01] MEDS: Nystatin POWDER 30 GM BOTTLE TP SCH ×2 (08:29→21:28)
[2019-05-01] MEDS: Nystatin SUSP 5 ML UD.LIQ BC SCH ×4 (08:29→21:25)
[2019-05-01] MEDS ORDERED: Potassium Chloride Elixir 20 MEQ/15 ML UDC PO ONE (15:28)
[2019-05-02] MEDS: *HR* Heparin 5,000 UNIT/ML VIAL SQ SCH ×2 (06:16→14:26)
[2019-05-02] MEDS: Divalproex (12 HR) 500 MG TABLET PO SCH ×3 (06:16→23:32)
[2019-05-02] MEDS: Levothyroxine 25 MCG TABLET PO SCH (06:16)
[2019-05-02 06:17] LABS: Basophils % 0.2 %; Eosinophils # 0.3 K/mcL (0.0-0.6); Eosinophils % 6.6 %; Hematocrit 30.3 % (35.3-44.9); Hemoglobin 9.9 g/dL (11.5-15.4); Immature Granulocytes % 1.3 % (0-4); Lymphocytes # 1.5 K/mcL (0.6-4.6); Lymphocytes % 32.6 %; Mean Corpuscular HGB Conc 32.7 g/dL (31.6-35.5); Mean Corpuscular Hemoglobin 31.1 pg (28.0-33.3); Mean Corpuscular Volume 95.3 fL (83.0-100.0); Mean Platelet Volume 10.5 fL (9.4-12.4); Monocytes # 0.5 K/mcL (0.0-1.3); Monocytes % 9.8 %; Neutrophils # 2.3 K/mcL (1.6-8.9); Platelet Count 242 K/mcL (140-400); Red Blood Count 3.18 M/mcL (3.82-4.97); Red Cell Distribution Width 19.1 % (11.5-14.5); Segmented Neutrophils % 49.5 %; White Blood Count 4.7 K/mcL (4.3-11.1)
[2019-05-02 06:35] LABS: BUN/Creatinine Ratio 10 (6-26); Blood Urea Nitrogen 6 mg/dL (8-23); Calcium 8.6 mg/dL (8.6-10.3); Carbon Dioxide 25 mEq/L (23-29); Chloride 106 mEq/L (98-107); Glucose 79 mg/dL (70-105); Osmolality,Calculated 287 (280-300); Potassium 3.5 mEq/L (3.5-5.1); Sodium 140 mEq/L (136-145); eGFR For African Americans > 60 (> 60); eGFR For Non-African Americans > 60 (> 60)
[2019-05-02] MEDS: levETIRAcetam 250 MG TABLET PO SCH ×2 (08:07→23:32)
[2019-05-02] MEDS: Topiramate 25 MG TABLET PO SCH ×2 (08:07→23:32)
[2019-05-02] MEDS: Aspirin Enteric Coated 325 MG Tablet PO SCH (08:08)
[2019-05-02] MEDS: FLUoxetine 20 MG CAPSULE PO SCH (08:08)
[2019-05-02] MEDS: Nystatin SUSP 5 ML UD.LIQ BC SCH ×4 (08:09→23:32)
[2019-05-02] MEDS: Megestrol Acetate 400 MG/10 ML UDC PO SCH ×2 (08:09→08:36)
[2019-05-02] MEDS: cefTRIAXone 1,000 MG in Water for inj. (sterile) 10 ML IVP SCH (08:10)
[2019-05-02] MEDS: Leptospermum Honey Gel 44 ML TUBE TP SCH (08:11)
[2019-05-02] MEDS: Nystatin POWDER 30 GM BOTTLE TP SCH ×2 (08:12→23:32)
[2019-05-02] MEDS: Neosporin OINT 15 GM TUBE TP SCH (08:12)
[2019-05-02] MEDS: D5% in Water 1,000 ML IVC SCH ×2 (10:36→22:48)
[2019-05-02] MEDS: Dextrose Gel 15 GM/37.5 ML TUBE PO PRN (11:35)
[2019-05-02] MEDS: D10% in Water 500 ML IVC SCH (17:17)
[2019-05-03] MEDS: Divalproex (12 HR) 500 MG TABLET PO SCH ×3 (04:36→21:34)
[2019-05-03] MEDS: *HR* Heparin 5,000 UNIT/ML VIAL SQ SCH ×2 (04:36→17:59)
[2019-05-03] MEDS: Levothyroxine 25 MCG TABLET PO SCH (04:36)
[2019-05-03] MEDS: FLUoxetine HCl 10 MG CAPSULE PO SCH (07:38)
[2019-05-03] MEDS: Aspirin Enteric Coated 325 MG Tablet PO SCH (07:39)
[2019-05-03] MEDS: Nystatin SUSP 5 ML UD.LIQ BC SCH ×4 (07:41→21:34)
[2019-05-03] MEDS: Megestrol Acetate 400 MG/10 ML UDC PO SCH (07:42)
[2019-05-03] MEDS: Nystatin POWDER 30 GM BOTTLE TP SCH ×2 (07:45→22:07)
[2019-05-03] MEDS: Leptospermum Honey Gel 44 ML TUBE TP SCH (07:45)
[2019-05-03] MEDS: Neosporin OINT 15 GM TUBE TP SCH (07:46)
[2019-05-03] MEDS: cefTRIAXone 1,000 MG in Water for inj. (sterile) 10 ML IVP SCH (07:46)
[2019-05-03] MEDS: levETIRAcetam 250 MG TABLET PO SCH ×2 (08:00→21:34)
[2019-05-03] MEDS: Topiramate 25 MG TABLET PO SCH ×2 (08:01→21:34)
[2019-05-03] MEDS: D10% in Water 500 ML IVC SCH (13:03)
[2019-05-03 16:33] LABS: Basophils % 0.3 %; Eosinophils # 0.3 K/mcL (0.0-0.6); Eosinophils % 8.2 %; Hematocrit 26.9 % (35.3-44.9); Hemoglobin 8.6 g/dL (11.5-15.4); Immature Granulocytes % 1.3 % (0-4); Lymphocytes # 1.1 K/mcL (0.6-4.6); Lymphocytes % 29.3 %; Mean Corpuscular Hemoglobin 31.4 pg (28.0-33.3); Mean Corpuscular Volume 98.2 fL (83.0-100.0); Mean Platelet Volume 10.4 fL (9.4-12.4); Monocytes # 0.5 K/mcL (0.0-1.3); Monocytes % 12.2 %; Neutrophils # 1.8 K/mcL (1.6-8.9); Platelet Count 231 K/mcL (140-400); Red Blood Count 2.74 M/mcL (3.82-4.97); Red Cell Distribution Width 19.7 % (11.5-14.5); Segmented Neutrophils % 48.7 %; White Blood Count 3.8 K/mcL (4.3-11.1)
[2019-05-03 16:47] LABS: BUN/Creatinine Ratio 9 (6-26); Blood Urea Nitrogen 7 mg/dL (8-23); Calcium 8.3 mg/dL (8.6-10.3); Carbon Dioxide 25 mEq/L (23-29); Chloride 107 mEq/L (98-107); Glucose 117 mg/dL (70-105); Osmolality,Calculated 285 (280-300); Potassium 3.2 mEq/L (3.5-5.1); Sodium 138 mEq/L (136-145); eGFR For African Americans > 60 (> 60); eGFR For Non-African Americans > 60 (> 60)
[2019-05-03 16:56] LABS: Magnesium 1.6 mg/dL (1.6-2.6); Phosphorous 2.8 mg/dL (2.7-4.5)
[2019-05-04] MEDS: D10% in Water 500 ML IVC SCH ×6 (00:09→23:23)
[2019-05-04 04:46] LABS: Basophils % 0.3 %; Eosinophils # 0.2 K/mcL (0.0-0.6); Eosinophils % 6.8 %; Hematocrit 30.8 % (35.3-44.9); Hemoglobin 9.7 g/dL (11.5-15.4); Lymphocytes % 28.5 %; Mean Corpuscular HGB Conc 31.5 g/dL (31.6-35.5); Mean Corpuscular Hemoglobin 31.6 pg (28.0-33.3); Mean Corpuscular Volume 100.3 fL (83.0-100.0); Monocytes # 0.4 K/mcL (0.0-1.3); Monocytes % 12.3 %; Neutrophils # 1.8 K/mcL (1.6-8.9); Platelet Count 248 K/mcL (140-400); Red Blood Count 3.07 M/mcL (3.82-4.97); Red Cell Distribution Width 19.4 % (11.5-14.5); Segmented Neutrophils % 50.1 %; White Blood Count 3.5 K/mcL (4.3-11.1)
[2019-05-04 05:08] LABS: BUN/Creatinine Ratio 11 (6-26); Blood Urea Nitrogen 8 mg/dL (8-23); Calcium 8.7 mg/dL (8.6-10.3); Carbon Dioxide 23 mEq/L (23-29); Chloride 106 mEq/L (98-107); Glucose 93 mg/dL (70-105); Osmolality,Calculated 284 (280-300); Potassium 3.3 mEq/L (3.5-5.1); Sodium 138 mEq/L (136-145); eGFR For African Americans > 60 (> 60); eGFR For Non-African Americans > 60 (> 60)
[2019-05-04] MEDS: Levothyroxine 25 MCG TABLET PO SCH (05:48)
[2019-05-04] MEDS: *HR* Heparin 5,000 UNIT/ML VIAL SQ SCH ×2 (05:48→18:19)
[2019-05-04] MEDS: levETIRAcetam 500 MG/5 ML UDC PO SCH ×2 (06:04→18:19)
[2019-05-04] MEDS: Valproic Acid Oral Soln 250 MG/5 ML UDC PO SCH ×3 (06:04→21:01)
[2019-05-04] MEDS: Nystatin SUSP 5 ML UD.LIQ BC SCH ×4 (08:14→21:01)
[2019-05-04] MEDS: Megestrol Acetate 400 MG/10 ML UDC PO SCH (08:15)
[2019-05-04] MEDS: Leptospermum Honey Gel 44 ML TUBE TP SCH (08:16)
[2019-05-04] MEDS: Aspirin Enteric Coated 325 MG Tablet PO SCH (08:16)
[2019-05-04] MEDS: FLUoxetine HCl 10 MG CAPSULE PO SCH (08:16)
[2019-05-04] MEDS: Topiramate 25 MG TABLET PO SCH ×2 (08:16→21:01)
[2019-05-04] MEDS: Nystatin POWDER 30 GM BOTTLE TP SCH ×2 (08:17→22:02)
[2019-05-04] MEDS: Neosporin OINT 15 GM TUBE TP SCH (08:17)
[2019-05-04] MEDS: D5% in Water 500 ML IVC SCH ×4 (12:20→17:04)
[2019-05-04] MEDS ORDERED: 0.9 % Sodium Chloride 500 ML IVC ONE (13:10)
[2019-05-04] MEDS ORDERED: Potassium Chloride 40 MEQ, Lidocaine 1% 2 ML in 0.9 % Sodium Chloride 500 ML IVPB ONE (13:20)
[2019-05-04] MEDS ORDERED: Tetracaine/Benzocaine/Butamben 1 SPRAY AEROSOL MM STA (14:23)
[2019-05-04] MEDS ORDERED: Valproic Acid INJ 500 MG in 0.9 % Sodium Chloride 100 ML IVPB SCH (22:00)
[2019-05-05] MEDS: D10% in Water 500 ML IVC SCH ×3 (05:17→21:22)
[2019-05-05] MEDS: *HR* Heparin 5,000 UNIT/ML VIAL SQ SCH ×2 (05:18→18:42)
[2019-05-05] MEDS: Valproic Acid INJ 500 MG in 0.9 % Sodium Chloride 100 ML IVPB SCH ×3 (05:18→21:22)
[2019-05-05] MEDS: Levothyroxine 25 MCG TABLET PO SCH (05:19)
[2019-05-05 06:36] LABS: Basophils % 0.4 %; Eosinophils # 0.4 K/mcL (0.0-0.6); Eosinophils % 6.6 %; Hematocrit 30.7 % (35.3-44.9); Hemoglobin 10.4 g/dL (11.5-15.4); Immature Granulocytes % 1.3 % (0-4); Immature Platelets 4.2 % (1.1-6.1); Lymphocytes % 17.5 %; Mean Corpuscular HGB Conc 33.9 g/dL (31.6-35.5); Mean Corpuscular Hemoglobin 32.5 pg (28.0-33.3); Mean Corpuscular Volume 95.9 fL (83.0-100.0); Mean Platelet Volume 11.5 fL (9.4-12.4); Monocytes # 0.5 K/mcL (0.0-1.3); Monocytes % 9.7 %; Neutrophils # 3.6 K/mcL (1.6-8.9); Platelet Count 285 K/mcL (140-400); Red Cell Distribution Width 19.9 % (11.5-14.5); Segmented Neutrophils % 64.5 %; White Blood Count 5.6 K/mcL (4.3-11.1)
[2019-05-05] MEDS ORDERED: Potassium Chloride 20 MEQ, Lidocaine 1% 2 ML in 0.9 % Sodium Chloride 250 ML IVPB ONE (06:57)
[2019-05-05 06:59] LABS: BUN/Creatinine Ratio 11 (6-26); Blood Urea Nitrogen 7 mg/dL (8-23); Calcium 8.9 mg/dL (8.6-10.3); Carbon Dioxide 22 mEq/L (23-29); Chloride 104 mEq/L (98-107); Glucose 153 mg/dL (70-105); Magnesium 1.7 mg/dL (1.6-2.6); Osmolality,Calculated 283 (280-300); Potassium 3.7 mEq/L (3.5-5.1); Sodium 136 mEq/L (136-145); eGFR For African Americans > 60 (> 60); eGFR For Non-African Americans > 60 (> 60)
[2019-05-05] MEDS ORDERED: 0.9 % Sodium Chloride 500 ML IVC ONE (08:32)
[2019-05-05] MEDS ORDERED: *HR* Propofol 200 MG/20 ML VIAL IVP ONE (09:37)
[2019-05-05] MEDS ORDERED: D10% in Water 500 ML IVC SCH ×2 (10:52→17:00)
[2019-05-05] MEDS: Aspirin Enteric Coated 325 MG Tablet PO SCH (12:23)
[2019-05-05] MEDS: Nystatin SUSP 5 ML UD.LIQ BC SCH ×3 (12:24→21:22)
[2019-05-05] MEDS: Megestrol Acetate 400 MG/10 ML UDC PO SCH (12:24)
[2019-05-05] MEDS: Leptospermum Honey Gel 44 ML TUBE TP SCH (13:12)
[2019-05-05] MEDS: Nystatin POWDER 30 GM BOTTLE TP SCH ×2 (13:13→21:22)
[2019-05-05] MEDS: Neosporin OINT 15 GM TUBE TP SCH (13:14)
[2019-05-05] MEDS: FLUoxetine HCl 10 MG CAPSULE PO SCH (13:15)
[2019-05-06] MEDS: D10% in Water 500 ML IVC SCH ×4 (03:31→20:04)
[2019-05-06] MEDS: levETIRAcetam 500 MG/5 ML UDC PO SCH ×2 (05:12→15:58)
[2019-05-06] MEDS: *HR* Heparin 5,000 UNIT/ML VIAL SQ SCH ×2 (05:13→17:22)
[2019-05-06] MEDS: Valproic Acid Oral Soln 250 MG/5 ML UDC PO SCH ×2 (05:13→20:04)
[2019-05-06] MEDS: Levothyroxine 25 MCG TABLET PO SCH (05:14)
[2019-05-06] MEDS: Valproic Acid INJ 500 MG in 0.9 % Sodium Chloride 100 ML IVPB SCH ×3 (05:21→22:28)
[2019-05-06 05:28] LABS: Basophils % 0.3 %; Eosinophils # 0.2 K/mcL (0.0-0.6); Eosinophils % 3.7 %; Hematocrit 27.8 % (35.3-44.9); Immature Granulocytes % 1.3 % (0-4); Lymphocytes # 1.1 K/mcL (0.6-4.6); Lymphocytes % 18.5 %; Mean Corpuscular HGB Conc 31.7 g/dL (31.6-35.5); Mean Corpuscular Hemoglobin 31.2 pg (28.0-33.3); Mean Corpuscular Volume 98.6 fL (83.0-100.0); Mean Platelet Volume 10.5 fL (9.4-12.4); Monocytes # 0.5 K/mcL (0.0-1.3); Monocytes % 7.5 %; Neutrophils # 4.1 K/mcL (1.6-8.9); Platelet Count 230 K/mcL (140-400); Red Blood Count 2.82 M/mcL (3.82-4.97); Red Cell Distribution Width 19.4 % (11.5-14.5); Segmented Neutrophils % 68.7 %
[2019-05-06 05:38] LABS: BUN/Creatinine Ratio 7 (6-26); Blood Urea Nitrogen 4 mg/dL (8-23); Calcium 8.7 mg/dL (8.6-10.3); Carbon Dioxide 23 mEq/L (23-29); Chloride 107 mEq/L (98-107); Glucose 163 mg/dL (70-105); Osmolality,Calculated 282 (280-300); Potassium 3.3 mEq/L (3.5-5.1); Sodium 136 mEq/L (136-145); eGFR For African Americans > 60 (> 60); eGFR For Non-African Americans > 60 (> 60)
[2019-05-06 05:56] LABS: Hemoglobin 8.8 g/dL (11.5-15.4)
[2019-05-06] MEDS: FLUoxetine HCl 10 MG CAPSULE PO SCH (10:09)
[2019-05-06] MEDS: Topiramate 25 MG TABLET PO SCH ×2 (10:09→22:27)
[2019-05-06] MEDS: Aspirin Enteric Coated 325 MG Tablet PO SCH (10:09)
[2019-05-06] MEDS: Nystatin SUSP 5 ML UD.LIQ BC SCH ×4 (10:10→22:26)
[2019-05-06] MEDS: Leptospermum Honey Gel 44 ML TUBE TP SCH (10:10)
[2019-05-06] MEDS: Nystatin POWDER 30 GM BOTTLE TP SCH ×2 (10:11→22:27)
[2019-05-06] MEDS: Neosporin OINT 15 GM TUBE TP SCH (10:11)
[2019-05-06] MEDS ORDERED: Potassium Chloride Elixir 20 MEQ/15 ML UDC PO ONE (16:45)
[2019-05-07] MEDS: Valproic Acid INJ 500 MG in 0.9 % Sodium Chloride 100 ML IVPB SCH ×3 (05:50→21:42)
[2019-05-07 06:00] LABS: Basophils % 0.2 %; Eosinophils # 0.1 K/mcL (0.0-0.6); Eosinophils % 0.3 %; Hematocrit 29.9 % (35.3-44.9); Hemoglobin 9.6 g/dL (11.5-15.4); Immature Granulocytes % 0.9 % (0-4); Lymphocytes # 1.2 K/mcL (0.6-4.6); Lymphocytes % 5.9 %; Mean Corpuscular HGB Conc 32.1 g/dL (31.6-35.5); Mean Corpuscular Hemoglobin 31.3 pg (28.0-33.3); Mean Corpuscular Volume 97.4 fL (83.0-100.0); Mean Platelet Volume 10.3 fL (9.4-12.4); Monocytes # 1.2 K/mcL (0.0-1.3); Monocytes % 6.2 %; Platelet Count 219 K/mcL (140-400); Red Blood Count 3.07 M/mcL (3.82-4.97); Red Cell Distribution Width 19.5 % (11.5-14.5); Segmented Neutrophils % 86.5 %
[2019-05-07 06:04] LABS: White Blood Count 19.7 K/mcL (4.3-11.1)
[2019-05-07 06:20] LABS: BUN/Creatinine Ratio 10 (6-26); Blood Urea Nitrogen 6 mg/dL (8-23); Calcium 8.8 mg/dL (8.6-10.3); Carbon Dioxide 20 mEq/L (23-29); Chloride 105 mEq/L (98-107); Glucose 119 mg/dL (70-105); Osmolality,Calculated 279 (280-300); Potassium 4.6 mEq/L (3.5-5.1); Sodium 135 mEq/L (136-145); eGFR For African Americans > 60 (> 60); eGFR For Non-African Americans > 60 (> 60)
[2019-05-07] MEDS: *HR* Heparin 5,000 UNIT/ML VIAL SQ SCH ×2 (06:37→17:07)
[2019-05-07] MEDS: Levothyroxine 25 MCG TABLET PO SCH (06:37)
[2019-05-07 08:47] LABS: Hemoglobin 9.9 g/dL (11.5-15.4); Mean Corpuscular HGB Conc 31.9 g/dL (31.6-35.5); Mean Corpuscular Hemoglobin 31.4 pg (28.0-33.3); Mean Corpuscular Volume 98.4 fL (83.0-100.0); Mean Platelet Volume 10.7 fL (9.4-12.4); Platelet Count 242 K/mcL (140-400); Red Blood Count 3.15 M/mcL (3.82-4.97); Red Cell Distribution Width 19.9 % (11.5-14.5); White Blood Count 23.9 K/mcL (4.3-11.1)
[2019-05-07 11:06] LABS: Adenovirus Not Detected (Not Detect); Bordetella Pertussis Not Detected (Not Detect); Chlamydophila pneumoniae Not Detected (Not Detect); Coronavirus 229E Not Detected (Not Detect); Coronavirus HKU1 DETECTED (Not Detect); Coronavirus NL63 Not Detected (Not Detect); Coronavirus OC43 Not Detected (Not Detect); Human Metapneumovirus Not Detected (Not Detect); Human Rhinovirus/Enterovirus Not Detected (Not Detect); Influenza A Subtype 2009 H1 Not Detected (Not Detect); Influenza B Not Detected (Not Detect); Mycoplasma pneumoniae Not Detected (Not Detect); Parainfluenza Virus 1 Not Detected (Not Detect); Parainfluenza Virus 2 Not Detected (Not Detect); Parainfluenza Virus 3 Not Detected (Not Detect); Parainfluenza Virus 4 Not Detected (Not Detect); Respiratory Syncytial Virus Not Detected (Not Detect)
[2019-05-07 12:08] LABS: Bilirubin,Urine Negative (Negative); Blood,Urine Negative (Negative); Color,Urine Yellow (Yellow); Glucose,Urine (UA) Normal (Normal); Ketones,Urine Negative (Negative); Leukocyte Esterase,Urine Small (Negative); Nitrite,Urine Negative (Negative); Protein,Urine 30 mg/dL (Neg-Trace); Specific Gravity,Urine 1.016 (1.010-1.025); Urobilinogen,Urine Normal (Normal)
[2019-05-07 12:10] LABS: Bacteria,Urine None Seen per hpf (None-Few); Squamous Epithelial Cell,Urine Many per lpf (None-Few); WBC,Urine 30-50 per hpf (0-3)
[2019-05-07 12:12] LABS: Clarity,Urine Slightly Hazy (Clear)
[2019-05-07] MEDS ORDERED: Ferrous Sulfate Oral Soln 300 MG/5 ML UDC GTUBE SCH (12:15)
[2019-05-07 12:29] LABS: Mucus,Urine Few per lpf (Few)
[2019-05-07 12:30] LABS: Transitional Epi Cells,Urine Few per hpf (None-Few); Yeast,Urine Few per hpf (None Seen)
[2019-05-07 12:31] LABS: Hyaline Casts,Urine Few per lpf (None-Few)
[2019-05-07] MEDS: Nystatin SUSP 5 ML UD.LIQ BC SCH ×4 (13:10→21:45)
[2019-05-07] MEDS ORDERED: 0.9 % Sodium Chloride 500 ML IVC ONE ×2 (13:32→13:34)
[2019-05-07] MEDS ORDERED: Ketorolac 15 MG/ML VIAL IVP PRN (13:46)
[2019-05-07] MEDS ORDERED: Isovue-370 500 ML BOTTLE IVP ONE (13:50)
[2019-05-07] MEDS: Aspirin 325 MG TABLET GTUBE SCH (13:55)
[2019-05-07] MEDS: Topiramate 25 MG TABLET GTUBE SCH (13:55)
[2019-05-07] MEDS: FLUoxetine HCl Oral Soln 20 MG/5 ML UDC GTUBE SCH (13:55)
[2019-05-07] MEDS: Leptospermum Honey Gel 44 ML TUBE TP SCH (14:34)
[2019-05-07] MEDS: Nystatin POWDER 30 GM BOTTLE TP SCH ×2 (14:34→21:44)
[2019-05-07] MEDS: Neosporin OINT 15 GM TUBE TP SCH (14:34)
[2019-05-07 14:40] LABS: Magnesium 1.5 mg/dL (1.6-2.6); Phosphorous 2.8 mg/dL (2.7-4.5)
[2019-05-07] MEDS: Piperacillin/Tazobactam 3.375 GM in 0.9 % Sodium Chloride Mini Bag 100 ML IVPB SCH (17:06)
[2019-05-07] MEDS ORDERED: 0.9 % Sodium Chloride 1,000 ML IVC ONE (17:19)
[2019-05-08] MEDS: Piperacillin/Tazobactam 3.375 GM in 0.9 % Sodium Chloride Mini Bag 100 ML IVPB SCH ×3 (00:25→15:54)
[2019-05-08] MEDS: Topiramate 25 MG TABLET GTUBE SCH ×3 (00:25→20:52)
[2019-05-08] MEDS: Valproic Acid INJ 500 MG in 0.9 % Sodium Chloride 100 ML IVPB SCH ×3 (05:26→22:24)
[2019-05-08] MEDS: Levothyroxine 25 MCG TABLET PO SCH (05:26)
[2019-05-08] MEDS: *HR* Heparin 5,000 UNIT/ML VIAL SQ SCH (05:27)
[2019-05-08 06:33] LABS: Basophils % 0.1 %; Eosinophils # 0.2 K/mcL (0.0-0.6); Eosinophils % 1.2 %; Hematocrit 21.4 % (35.3-44.9); Immature Granulocytes % 0.7 % (0-4); Lymphocytes # 1.2 K/mcL (0.6-4.6); Lymphocytes % 8.5 %; Mean Corpuscular HGB Conc 31.3 g/dL (31.6-35.5); Mean Corpuscular Hemoglobin 31.5 pg (28.0-33.3); Mean Corpuscular Volume 100.5 fL (83.0-100.0); Monocytes # 0.6 K/mcL (0.0-1.3); Monocytes % 4.5 %; Neutrophils # 11.8 K/mcL (1.6-8.9); Platelet Count 140 K/mcL (140-400); Red Blood Count 2.13 M/mcL (3.82-4.97); Red Cell Distribution Width 19.9 % (11.5-14.5); White Blood Count 13.9 K/mcL (4.3-11.1)
[2019-05-08 06:34] LABS: Hemoglobin 6.7 g/dL (11.5-15.4)
[2019-05-08 06:49] LABS: Magnesium 2.1 mg/dL (1.6-2.6); Phosphorous 2.5 mg/dL (2.7-4.5)
[2019-05-08 06:51] LABS: BUN/Creatinine Ratio 17 (6-26); Blood Urea Nitrogen 14 mg/dL (8-23); Calcium 8.5 mg/dL (8.6-10.3); Carbon Dioxide 25 mEq/L (23-29); Chloride 106 mEq/L (98-107); Glucose 181 mg/dL (70-105); Osmolality,Calculated 289 (280-300); Potassium 4.2 mEq/L (3.5-5.1); Sodium 137 mEq/L (136-145); eGFR For African Americans > 60 (> 60); eGFR For Non-African Americans > 60 (> 60)
[2019-05-08] MEDS ORDERED: Ketorolac 15 MG/ML VIAL IVP PRN (08:31)
[2019-05-08] MEDS: FLUoxetine HCl Oral Soln 20 MG/5 ML UDC GTUBE SCH (09:02)
[2019-05-08] MEDS: Nystatin SUSP 5 ML UD.LIQ BC SCH (09:03)
[2019-05-08] MEDS: Aspirin 325 MG TABLET GTUBE SCH (09:04)
[2019-05-08 10:08] LABS: Hemoglobin 6.9 g/dL (11.5-15.4); Mean Corpuscular HGB Conc 32.9 g/dL (31.6-35.5); Mean Corpuscular Hemoglobin 31.8 pg (28.0-33.3); Mean Corpuscular Volume 96.8 fL (83.0-100.0); Platelet Count 152 K/mcL (140-400); Red Blood Count 2.17 M/mcL (3.82-4.97); Red Cell Distribution Width 19.9 % (11.5-14.5); White Blood Count 14.3 K/mcL (4.3-11.1)
[2019-05-08] MEDS ORDERED: 0.9 % Sodium Chloride 250 ML ONE ×2 (11:58→18:08)
[2019-05-08] MEDS: Neosporin OINT 15 GM TUBE TP SCH (15:14)
[2019-05-08] MEDS: Nystatin POWDER 30 GM BOTTLE TP SCH ×2 (15:14→20:52)
[2019-05-08] MEDS: Leptospermum Honey Gel 44 ML TUBE TP SCH (15:16)
[2019-05-08] MEDS: Ferrous Sulfate Oral Soln 300 MG/5 ML UDC GTUBE SCH (15:54)
[2019-05-08 16:08] LABS: INR 1.2; Prothrombin Time 13.9 Seconds (9.4-12.1)
[2019-05-08 16:10] LABS: Hematocrit 27.1 % (35.3-44.9)
[2019-05-08 16:15] LABS: Hemoglobin 8.8 g/dL (11.5-15.4)
[2019-05-08 23:32] LABS: Hematocrit 32.8 % (35.3-44.9)
[2019-05-08 23:33] LABS: Hemoglobin 10.6 g/dL (11.5-15.4)
[2019-05-09] MEDS: Piperacillin/Tazobactam 3.375 GM in 0.9 % Sodium Chloride Mini Bag 100 ML IVPB SCH ×4 (00:23→23:59)
[2019-05-09] MEDS: Valproic Acid INJ 500 MG in 0.9 % Sodium Chloride 100 ML IVPB SCH ×3 (05:37→21:27)
[2019-05-09] MEDS: Levothyroxine 25 MCG TABLET PO SCH (05:37)
[2019-05-09] MEDS: Topiramate 25 MG TABLET GTUBE SCH ×2 (08:16→21:06)
[2019-05-09] MEDS: FLUoxetine HCl Oral Soln 20 MG/5 ML UDC GTUBE SCH (08:16)
[2019-05-09] MEDS: Aspirin 325 MG TABLET GTUBE SCH ×2 (08:17→10:28)
[2019-05-09] MEDS: Leptospermum Honey Gel 44 ML TUBE TP SCH (08:18)
[2019-05-09] MEDS: Neosporin OINT 15 GM TUBE TP SCH (08:19)
[2019-05-09] MEDS: Nystatin POWDER 30 GM BOTTLE TP SCH ×2 (08:19→21:26)
[2019-05-09 08:20] LABS: Basophils % 0.2 %; Eosinophils # 0.4 K/mcL (0.0-0.6); Eosinophils % 2.4 %; Hematocrit 31.9 % (35.3-44.9); Hemoglobin 10.4 g/dL (11.5-15.4); Immature Granulocytes % 1.2 % (0-4); Lymphocytes # 1.4 K/mcL (0.6-4.6); Lymphocytes % 8.5 %; Mean Corpuscular HGB Conc 32.6 g/dL (31.6-35.5); Mean Corpuscular Hemoglobin 31.5 pg (28.0-33.3); Mean Corpuscular Volume 96.7 fL (83.0-100.0); Mean Platelet Volume 10.6 fL (9.4-12.4); Monocytes # 0.8 K/mcL (0.0-1.3); Monocytes % 4.5 %; Nucleated Red Blood Cells 0.1 /100 WBC (0); Platelet Count 127 K/mcL (140-400); Red Cell Distribution Width 18.8 % (11.5-14.5); Segmented Neutrophils % 83.2 %; White Blood Count 16.8 K/mcL (4.3-11.1)
[2019-05-09 08:39] LABS: BUN/Creatinine Ratio 24 (6-26); Blood Urea Nitrogen 19 mg/dL (8-23); Calcium 9.1 mg/dL (8.6-10.3); Carbon Dioxide 25 mEq/L (23-29); Chloride 107 mEq/L (98-107); Glucose 144 mg/dL (70-105); Osmolality,Calculated 293 (280-300); Potassium 4.3 mEq/L (3.5-5.1); Sodium 139 mEq/L (136-145); eGFR For African Americans > 60 (> 60); eGFR For Non-African Americans > 60 (> 60)
[2019-05-09] MEDS: Ferrous Sulfate Oral Soln 300 MG/5 ML UDC GTUBE SCH (12:45)
[2019-05-09] MEDS ORDERED: Furosemide 20 MG/2 ML VIAL IVP ONE ×2 (22:24→22:27)
[2019-05-10] MEDS: D5% in Water 1,000 ML IVC PRN (00:48)
[2019-05-10] MEDS ORDERED: D5% in 0.9% NACL 1,000 ML IVC SCH (04:00)
[2019-05-10] MEDS: Levothyroxine 25 MCG TABLET PO SCH (05:29)
[2019-05-10] MEDS: Valproic Acid INJ 500 MG in 0.9 % Sodium Chloride 100 ML IVPB SCH ×3 (05:29→20:41)
[2019-05-10 06:46] LABS: Hematocrit 34.2 % (35.3-44.9); Hemoglobin 11.2 g/dL (11.5-15.4); Mean Corpuscular HGB Conc 32.7 g/dL (31.6-35.5); Mean Corpuscular Volume 94.7 fL (83.0-100.0); Mean Platelet Volume 10.8 fL (9.4-12.4); Platelet Count 115 K/mcL (140-400); Red Blood Count 3.61 M/mcL (3.82-4.97); Red Cell Distribution Width 19.1 % (11.5-14.5); White Blood Count 12.9 K/mcL (4.3-11.1)
[2019-05-10 07:54] LABS: BUN/Creatinine Ratio 21 (6-26); Blood Urea Nitrogen 18 mg/dL (8-23); Calcium 8.7 mg/dL (8.6-10.3); Carbon Dioxide 17 mEq/L (23-29); Chloride 109 mEq/L (98-107); Glucose 89 mg/dL (70-105); Magnesium 1.9 mg/dL (1.6-2.6); Osmolality,Calculated 287 (280-300); Potassium 4.6 mEq/L (3.5-5.1); Sodium 138 mEq/L (136-145); eGFR For African Americans > 60 (> 60); eGFR For Non-African Americans > 60 (> 60)
[2019-05-10] MEDS: Piperacillin/Tazobactam 3.375 GM in 0.9 % Sodium Chloride Mini Bag 100 ML IVPB SCH ×2 (08:10→16:52)
[2019-05-10] MEDS: Aspirin 325 MG TABLET GTUBE SCH (08:11)
[2019-05-10] MEDS: Leptospermum Honey Gel 44 ML TUBE TP SCH (08:11)
[2019-05-10] MEDS: Nystatin POWDER 30 GM BOTTLE TP SCH ×2 (08:11→20:32)
[2019-05-10] MEDS: Neosporin OINT 15 GM TUBE TP SCH (08:12)
[2019-05-10] MEDS: FLUoxetine HCl Oral Soln 20 MG/5 ML UDC GTUBE SCH ×2 (08:12→13:38)
[2019-05-10] MEDS: Topiramate 25 MG TABLET GTUBE SCH ×3 (08:12→20:32)
[2019-05-10] MEDS: Ferrous Sulfate Oral Soln 300 MG/5 ML UDC GTUBE SCH (13:38)
[2019-05-10] MEDS: *HR* Dextrose 50 % in Water (Syg) 50 ML SYRINGE IVP PRN (16:01)
[2019-05-10] MEDS: D5% in 0.9% NACL 1,000 ML IVC SCH (16:35)
[2019-05-11] MEDS: *HR* Dextrose 50 % in Water (Syg) 50 ML SYRINGE IVP PRN ×4 (00:24→23:41)
[2019-05-11] MEDS: Piperacillin/Tazobactam 3.375 GM in 0.9 % Sodium Chloride Mini Bag 100 ML IVPB SCH ×4 (00:29→23:41)
[2019-05-11] MEDS: D5% in 0.9% NACL 1,000 ML IVC SCH ×3 (00:33→13:54)
[2019-05-11 04:02] LABS: Basophils % 0.4 %; Eosinophils # 0.2 K/mcL (0.0-0.6); Eosinophils % 2.4 %; Hemoglobin 11.1 g/dL (11.5-15.4); Immature Granulocytes % 1.9 % (0-4); Lymphocytes # 1.4 K/mcL (0.6-4.6); Lymphocytes % 18.7 %; Mean Corpuscular HGB Conc 32.6 g/dL (31.6-35.5); Mean Corpuscular Hemoglobin 31.1 pg (28.0-33.3); Mean Corpuscular Volume 95.2 fL (83.0-100.0); Mean Platelet Volume 10.5 fL (9.4-12.4); Monocytes # 0.4 K/mcL (0.0-1.3); Monocytes % 5.7 %; Neutrophils # 5.2 K/mcL (1.6-8.9); Platelet Count 114 K/mcL (140-400); Red Blood Count 3.57 M/mcL (3.82-4.97); Red Cell Distribution Width 18.8 % (11.5-14.5); Segmented Neutrophils % 70.9 %; White Blood Count 7.4 K/mcL (4.3-11.1)
[2019-05-11 04:25] LABS: BUN/Creatinine Ratio 21 (6-26); Blood Urea Nitrogen 16 mg/dL (8-23); Calcium 8.7 mg/dL (8.6-10.3); Carbon Dioxide 24 mEq/L (23-29); Chloride 112 mEq/L (98-107); Glucose 79 mg/dL (70-105); Osmolality,Calculated 292 (280-300); Potassium 3.8 mEq/L (3.5-5.1); Sodium 141 mEq/L (136-145); eGFR For African Americans > 60 (> 60); eGFR For Non-African Americans > 60 (> 60)
[2019-05-11] MEDS: Levothyroxine 25 MCG TABLET PO SCH (06:34)
[2019-05-11] MEDS: Valproic Acid INJ 500 MG in 0.9 % Sodium Chloride 100 ML IVPB SCH (06:55)
[2019-05-11] MEDS: Topiramate 25 MG TABLET GTUBE SCH ×2 (08:43→21:36)
[2019-05-11] MEDS: Aspirin 325 MG TABLET GTUBE SCH (08:44)
[2019-05-11] MEDS: FLUoxetine HCl Oral Soln 20 MG/5 ML UDC GTUBE SCH (08:44)
[2019-05-11] MEDS: Neosporin OINT 15 GM TUBE TP SCH (08:44)
[2019-05-11] MEDS: Nystatin POWDER 30 GM BOTTLE TP SCH ×2 (09:08→21:34)
[2019-05-11] MEDS: Haloperidol Lactate 5 MG/ML VIAL IVP PRN ×2 (10:34→21:20)
[2019-05-11] MEDS: Leptospermum Honey Gel 44 ML TUBE TP SCH (10:34)
[2019-05-11] MEDS: Ferrous Sulfate Oral Soln 300 MG/5 ML UDC GTUBE SCH (11:48)
[2019-05-11] MEDS: Divalproex Sodium 125 MG CAPSULE GTUBE SCH ×2 (14:40→21:38)
[2019-05-11] MEDS: levETIRAcetam 500 MG/5 ML UDC GTUBE SCH (17:56)
[2019-05-12] MEDS: D5% in 0.9% NACL 1,000 ML IVC SCH (00:34)
[2019-05-12 05:18] LABS: Basophils # 0.1 K/mcL (0.0-0.2); Eosinophils # 0.2 K/mcL (0.0-0.6); Eosinophils % 3.2 %; Hematocrit 33.1 % (35.3-44.9); Immature Granulocytes % 4.9 % (0-4); Immature Platelets 3.7 % (1.1-6.1); Lymphocytes # 1.3 K/mcL (0.6-4.6); Lymphocytes % 20.3 %; Mean Corpuscular HGB Conc 33.2 g/dL (31.6-35.5); Mean Corpuscular Hemoglobin 30.9 pg (28.0-33.3); Mean Platelet Volume 10.3 fL (9.4-12.4); Monocytes # 0.5 K/mcL (0.0-1.3); Monocytes % 8.1 %; Neutrophils # 3.9 K/mcL (1.6-8.9); Nucleated Red Blood Cells 0.3 /100 WBC (0); Red Blood Count 3.56 M/mcL (3.82-4.97); Red Cell Distribution Width 17.8 % (11.5-14.5); Segmented Neutrophils % 62.5 %; White Blood Count 6.2 K/mcL (4.3-11.1)
[2019-05-12 05:32] LABS: BUN/Creatinine Ratio 19 (6-26); Blood Urea Nitrogen 14 mg/dL (8-23); Calcium 8.3 mg/dL (8.6-10.3); Carbon Dioxide 18 mEq/L (23-29); Chloride 117 mEq/L (98-107); Glucose 84 mg/dL (70-105); Osmolality,Calculated 298 (280-300); Potassium 4.1 mEq/L (3.5-5.1); Sodium 144 mEq/L (136-145); eGFR For African Americans > 60 (> 60); eGFR For Non-African Americans > 60 (> 60)
[2019-05-12 05:44] LABS: Platelet Count 93 K/mcL (140-400)
[2019-05-12] MEDS: levETIRAcetam 500 MG/5 ML UDC GTUBE SCH ×2 (05:59→18:35)
[2019-05-12] MEDS: Divalproex Sodium 125 MG CAPSULE GTUBE SCH ×3 (05:59→20:41)
[2019-05-12] MEDS: Levothyroxine 25 MCG TABLET PO SCH (05:59)
[2019-05-12] MEDS: Haloperidol Lactate 5 MG/ML VIAL IVP PRN ×2 (10:04→18:35)
[2019-05-12] MEDS: Aspirin 325 MG TABLET GTUBE SCH (10:05)
[2019-05-12] MEDS: FLUoxetine HCl Oral Soln 20 MG/5 ML UDC GTUBE SCH (10:06)
[2019-05-12] MEDS: Topiramate 25 MG TABLET GTUBE SCH ×2 (10:06→20:41)
[2019-05-12] MEDS: Piperacillin/Tazobactam 3.375 GM in 0.9 % Sodium Chloride Mini Bag 100 ML IVPB SCH (10:07)
[2019-05-12] MEDS: Nystatin POWDER 30 GM BOTTLE TP SCH ×2 (10:10→20:42)
[2019-05-12] MEDS: Neosporin OINT 15 GM TUBE TP SCH (10:10)
[2019-05-12] MEDS: Leptospermum Honey Gel 44 ML TUBE TP SCH (10:10)
[2019-05-12] MEDS ORDERED: D5% in 0.9% NACL 1,000 ML IVC SCH (10:19)
[2019-05-12] MEDS: D5% in Water 1,000 ML IVC SCH (11:43)
[2019-05-12] MEDS: *HR* Dextrose 50 % in Water (Syg) 50 ML SYRINGE IVP PRN ×2 (12:26→20:10)
[2019-05-12] MEDS: Ferrous Sulfate Oral Soln 300 MG/5 ML UDC GTUBE SCH (15:20)
[2019-05-13] MEDS: *HR* Dextrose 50 % in Water (Syg) 50 ML SYRINGE IVP PRN (00:20)
[2019-05-13] MEDS: D5% in Water 1,000 ML IVC SCH (00:50)
[2019-05-13] MEDS: levETIRAcetam 500 MG/5 ML UDC GTUBE SCH (06:40)
[2019-05-13] MEDS: Divalproex Sodium 125 MG CAPSULE GTUBE SCH (06:40)
[2019-05-13 07:04] VITALS: BP 166/84
[2019-05-13] MEDS: Leptospermum Honey Gel 44 ML TUBE TP SCH (10:15)
[2019-05-13] MEDS: FLUoxetine HCl Oral Soln 20 MG/5 ML UDC GTUBE SCH (10:15)
[2019-05-13] MEDS: Topiramate 25 MG TABLET GTUBE SCH (10:15)
[2019-05-13] MEDS: Nystatin POWDER 30 GM BOTTLE TP SCH (10:15)
[2019-05-13] MEDS: Haloperidol Lactate 5 MG/ML VIAL IVP PRN (10:16)
[2019-05-13] MEDS: Neosporin OINT 15 GM TUBE TP SCH (10:16)
== END 2019-05-13 10:25 | disposition hospice, inpatient (51) | DRG 698 ==
LOC: EMEROOARM 10:26 → 3BNU 10:26 → SUATTDRO 04-26 13:08 → 2ANU 05-07 20:14
PROVIDERS: ADMIT Internal Medicine; ATTEND Student in an Organized Health Care Education/Training Program

== ENCOUNTER 2019-05-13 08:57 | Inpatient (IN) ==
[2019-05-13] MEDS ORDERED: Haloperidol Lactate 5 MG/ML VIAL IVP PRN (09:00)
[2019-05-13] MEDS ORDERED: *HR* LORazepam Oral Conc 2 MG/ML SL PRN (09:00)
[2019-05-13] MEDS ORDERED: Ipratropium/Albuterol Neb 3 ML IH PRN (09:16)
[2019-05-13] MEDS ORDERED: Atropine Sulfate 1% 40 DROP/2 ML BOTTLE SL PRN (09:16)
[2019-05-13] MEDS: D5% in Water 1,000 ML IVC SCH (12:57)
[2019-05-13] MEDS: Haloperidol Oral Conc 10 MG/5 ML UDC PO SCH ×3 (12:57→22:02)
[2019-05-13] MEDS: Divalproex Sodium 125 MG CAPSULE GTUBE SCH ×2 (13:00→22:02)
[2019-05-13] MEDS: Haloperidol Lactate 5 MG/ML VIAL IVP PRN (13:20)
[2019-05-13] MEDS: levETIRAcetam 500 MG/5 ML UDC GTUBE SCH (17:25)
[2019-05-13] MEDS ORDERED: levETIRAcetam 500 MG/5 ML UDC GTUBE SCH (21:00)
[2019-05-13] MEDS: Topiramate 25 MG TABLET GTUBE SCH (22:02)
[2019-05-14] MEDS: D5% in Water 1,000 ML IVC SCH (00:27)
[2019-05-14] MEDS: Haloperidol Lactate 5 MG/ML VIAL IVP PRN (00:41)
[2019-05-14] MEDS: Haloperidol Oral Conc 10 MG/5 ML UDC PO SCH ×6 (00:42→20:44)
[2019-05-14] MEDS: levETIRAcetam 500 MG/5 ML UDC GTUBE SCH ×2 (06:17→18:04)
[2019-05-14] MEDS: Divalproex Sodium 125 MG CAPSULE GTUBE SCH ×3 (06:18→20:59)
[2019-05-14] MEDS: Topiramate 25 MG TABLET GTUBE SCH ×2 (08:06→20:59)
[2019-05-14] MEDS: FLUoxetine HCl Oral Soln 20 MG/5 ML UDC GTUBE SCH (08:06)
[2019-05-14] MEDS: Leptospermum Honey Paste 1 APPL/5 ML MLS TP SCH (11:33)
[2019-05-15] MEDS: Haloperidol Oral Conc 10 MG/5 ML UDC PO SCH ×6 (00:15→20:56)
[2019-05-15] MEDS: levETIRAcetam 500 MG/5 ML UDC GTUBE SCH ×2 (05:48→16:20)
[2019-05-15] MEDS: Divalproex Sodium 125 MG CAPSULE GTUBE SCH ×3 (05:48→20:57)
[2019-05-15] MEDS: FLUoxetine HCl Oral Soln 20 MG/5 ML UDC GTUBE SCH (08:09)
[2019-05-15] MEDS: Topiramate 25 MG TABLET GTUBE SCH ×2 (08:10→20:57)
[2019-05-15] MEDS: Leptospermum Honey Paste 1 APPL/5 ML MLS TP SCH (08:11)
[2019-05-15] MEDS: Haloperidol Lactate 5 MG/ML VIAL IVP PRN (09:40)
[2019-05-16] MEDS: Haloperidol Oral Conc 10 MG/5 ML UDC PO SCH ×6 (00:12→20:44)
[2019-05-16] MEDS: levETIRAcetam 500 MG/5 ML UDC GTUBE SCH ×2 (05:46→16:18)
[2019-05-16] MEDS: Divalproex Sodium 125 MG CAPSULE GTUBE SCH ×3 (05:46→22:24)
[2019-05-16] MEDS: Topiramate 25 MG TABLET GTUBE SCH ×2 (08:47→20:46)
[2019-05-16] MEDS: FLUoxetine HCl Oral Soln 20 MG/5 ML UDC GTUBE SCH (08:47)
[2019-05-16] MEDS: Leptospermum Honey Paste 1 APPL/5 ML MLS TP SCH (08:48)
[2019-05-16] MEDS: Neosporin OINT 15 GM TUBE TP SCH ×2 (15:44→20:57)
[2019-05-17] MEDS: Haloperidol Oral Conc 10 MG/5 ML UDC PO SCH ×6 (03:59→20:21)
[2019-05-17] MEDS: Divalproex Sodium 125 MG CAPSULE GTUBE SCH ×3 (05:32→20:21)
[2019-05-17] MEDS: levETIRAcetam 500 MG/5 ML UDC GTUBE SCH ×2 (05:33→17:01)
[2019-05-17] MEDS: Leptospermum Honey Paste 1 APPL/5 ML MLS TP SCH (08:24)
[2019-05-17] MEDS: FLUoxetine HCl Oral Soln 20 MG/5 ML UDC GTUBE SCH (08:30)
[2019-05-17] MEDS: Topiramate 25 MG TABLET GTUBE SCH ×2 (08:30→20:21)
[2019-05-17] MEDS: Neosporin OINT 15 GM TUBE TP SCH ×2 (09:13→20:28)
[2019-05-18] MEDS: Haloperidol Oral Conc 10 MG/5 ML UDC PO SCH ×6 (00:48→20:18)
[2019-05-18] MEDS: levETIRAcetam 500 MG/5 ML UDC GTUBE SCH ×2 (05:54→18:26)
[2019-05-18] MEDS: Divalproex Sodium 125 MG CAPSULE GTUBE SCH ×3 (05:54→20:19)
[2019-05-18] MEDS: Topiramate 25 MG TABLET GTUBE SCH ×2 (09:48→20:19)
[2019-05-18] MEDS: FLUoxetine HCl Oral Soln 20 MG/5 ML UDC GTUBE SCH (09:48)
[2019-05-18] MEDS: Neosporin OINT 15 GM TUBE TP SCH ×2 (09:49→20:20)
[2019-05-18] MEDS ORDERED: Haloperidol Oral Conc 10 MG/5 ML UDC PO PRN (10:56)
[2019-05-18] MEDS: Leptospermum Honey Paste 1 APPL/5 ML MLS TP SCH (13:15)
[2019-05-19] MEDS: Haloperidol Oral Conc 10 MG/5 ML UDC PO SCH ×6 (00:10→21:06)
[2019-05-19] MEDS: levETIRAcetam 500 MG/5 ML UDC GTUBE SCH ×2 (05:18→17:20)
[2019-05-19] MEDS: Divalproex Sodium 125 MG CAPSULE GTUBE SCH ×3 (05:18→21:07)
[2019-05-19] MEDS: Topiramate 25 MG TABLET GTUBE SCH ×2 (09:59→21:09)
[2019-05-19] MEDS: Neosporin OINT 15 GM TUBE TP SCH ×2 (10:00→20:46)
[2019-05-19] MEDS: FLUoxetine HCl Oral Soln 20 MG/5 ML UDC GTUBE SCH (10:00)
[2019-05-19] MEDS: Leptospermum Honey Paste 1 APPL/5 ML MLS TP SCH (10:00)
[2019-05-20] MEDS: Haloperidol Oral Conc 10 MG/5 ML UDC PO SCH ×6 (01:10→21:44)
[2019-05-20] MEDS: Divalproex Sodium 125 MG CAPSULE GTUBE SCH ×3 (05:15→21:49)
[2019-05-20] MEDS: levETIRAcetam 500 MG/5 ML UDC GTUBE SCH ×2 (05:19→17:22)
[2019-05-20] MEDS: FLUoxetine HCl Oral Soln 20 MG/5 ML UDC GTUBE SCH (09:57)
[2019-05-20] MEDS: Topiramate 25 MG TABLET GTUBE SCH ×2 (09:58→21:45)
[2019-05-20] MEDS: Neosporin OINT 15 GM TUBE TP SCH ×2 (09:59→21:40)
[2019-05-20] MEDS: Leptospermum Honey Paste 1 APPL/5 ML MLS TP SCH (09:59)
[2019-05-21] MEDS: Haloperidol Oral Conc 10 MG/5 ML UDC PO SCH ×6 (00:54→22:11)
[2019-05-21] MEDS: Divalproex Sodium 125 MG CAPSULE GTUBE SCH ×3 (04:52→22:28)
[2019-05-21] MEDS: levETIRAcetam 500 MG/5 ML UDC GTUBE SCH ×2 (04:57→17:04)
[2019-05-21] MEDS: Topiramate 25 MG TABLET GTUBE SCH ×2 (09:14→22:28)
[2019-05-21] MEDS: FLUoxetine HCl Oral Soln 20 MG/5 ML UDC GTUBE SCH (09:15)
[2019-05-21] MEDS: Neosporin OINT 15 GM TUBE TP SCH ×2 (09:16→22:12)
[2019-05-21] MEDS: Leptospermum Honey Paste 1 APPL/5 ML MLS TP SCH (09:16)
[2019-05-22] MEDS: Haloperidol Oral Conc 10 MG/5 ML UDC PO SCH ×6 (01:04→22:16)
[2019-05-22] MEDS: Divalproex Sodium 125 MG CAPSULE GTUBE SCH ×3 (05:33→22:16)
[2019-05-22] MEDS: levETIRAcetam 500 MG/5 ML UDC GTUBE SCH ×2 (05:33→17:18)
[2019-05-22] MEDS: FLUoxetine HCl Oral Soln 20 MG/5 ML UDC GTUBE SCH (10:24)
[2019-05-22] MEDS: Topiramate 25 MG TABLET GTUBE SCH ×2 (10:26→22:16)
[2019-05-22] MEDS: Neosporin OINT 15 GM TUBE TP SCH ×2 (10:28→22:17)
[2019-05-22] MEDS: Leptospermum Honey Paste 1 APPL/5 ML MLS TP SCH (10:28)
[2019-05-23] MEDS: Haloperidol Oral Conc 10 MG/5 ML UDC PO SCH ×6 (00:45→20:30)
[2019-05-23] MEDS: Divalproex Sodium 125 MG CAPSULE GTUBE SCH ×3 (06:08→20:32)
[2019-05-23] MEDS: levETIRAcetam 500 MG/5 ML UDC GTUBE SCH ×2 (06:10→18:04)
[2019-05-23] MEDS: Topiramate 25 MG TABLET GTUBE SCH ×2 (08:16→20:42)
[2019-05-23] MEDS: FLUoxetine HCl Oral Soln 20 MG/5 ML UDC GTUBE SCH (08:16)
[2019-05-23] MEDS: Neosporin OINT 15 GM TUBE TP SCH ×2 (08:32→20:42)
[2019-05-23] MEDS: Leptospermum Honey Paste 1 APPL/5 ML MLS TP SCH (08:35)
[2019-05-24] MEDS: Haloperidol Oral Conc 10 MG/5 ML UDC PO SCH ×4 (00:56→12:16)
[2019-05-24] MEDS: Divalproex Sodium 125 MG CAPSULE GTUBE SCH ×2 (06:07→14:17)
[2019-05-24] MEDS: levETIRAcetam 500 MG/5 ML UDC GTUBE SCH (06:07)
[2019-05-24 06:36] VITALS: BP 123/64
[2019-05-24] MEDS: Neosporin OINT 15 GM TUBE TP SCH (07:48)
[2019-05-24] MEDS: FLUoxetine HCl Oral Soln 20 MG/5 ML UDC GTUBE SCH (09:57)
[2019-05-24] MEDS: Topiramate 25 MG TABLET GTUBE SCH (09:57)
[2019-05-24] MEDS: Leptospermum Honey Paste 1 APPL/5 ML MLS TP SCH (09:58)
== END 2019-05-24 15:07 | disposition hospice, inpatient (51) | DRG 177 ==
LOC: 2ANU 11:14
PROVIDERS: ADMIT Internal Medicine Hospice and Palliative Medicine; ATTEND Internal Medicine Hospice and Palliative Medicine